=== PATIENT | male | born 1980 | race African-American/Black ===

== ENCOUNTER 2018-11-25 10:04 | Inpatient (IN) ==
[2018-11-25 10:52] LABS: Basophils # 0.1 10*3/uL (0.0-0.2); Basophils % 0.6 % (0.0-0.8); Eosinophils # 0.1 10*3/uL (0.0-0.87); Eosinophils % 1.3 % (0.00-10.9); Hematocrit 27.6 VOL% (42.0-52.0); Immature Granulocytes Absolute 0.22 #; Lymphocytes # 1.9 10*3/uL (1.4-4.0); Lymphocytes % 17.2 % (21.2-54.2); Mean Corpuscular Volume 79.3 FL (87-102); Mean Platelet Volume 9.6 FL (9.6-12.0); Monocytes % 11.1 % (1.7-12.7); Neutrophils % 67.8 % (38.7-73.9); Platelet Count 950 T/CUMM (130-400); Red Blood Count 3.48 MC/CUMM (3.8-5.5); Red Cell Distribution Width 17.9 % (9.3-17.3)
[2018-11-25 11:13] LABS: Alanine Aminotransferase 21 U/L (16-61); Albumin 1.7 G/DL (3.4-5.0); Alkaline Phosphatase 207 U/L (45-117); Aspartate Amino Transferase 15 U/L (0-37); Bilirubin,Total < 0.39 MG/DL (0.2-1.0); Blood Urea Nitrogen 40 MG/DL (7-18); Calcium 9.1 MG/DL (8.5-10.1); Glucose 97 MG/DL (74-106); Osmolality,Calculated 284.7 MOS/KG (273-304); Total Protein 8.3 G/DL (6.4-8.3)
[2018-11-25] MEDS ORDERED: LIDOCAINE 1% 50 ML VIAL ONE (13:39)
[2018-11-25 14:00] LABS: Risk Ratio 3.14
[2018-11-25] MEDS ORDERED: GLUCAGON 1 MG VIAL IM PRN (14:12)
[2018-11-25] MEDS ORDERED: DEXTROSE 50% 25 GM/50 ML VIAL IV PRN (14:12)
[2018-11-25] MEDS: INSULIN REGULAR 100 UNIT/ML SUBCUT SCH ×2 (15:38→20:42)
[2018-11-25] MEDS: SODIUM CHLORIDE 0.9% 1,000 ML IV SCH (16:00)
[2018-11-25] MEDS: PIPERACILLIN/TAZOBACTAM 3,375 MG in SODIUM CHLORIDE 0.9% 100 ML IV SCH ×2 (16:00→22:21)
[2018-11-25 16:49] LABS: Apearance,Urine CLEAR (Clear); Bacteria,Urine Occasional /HPF (Few); Bilirubin,Urine Negative (Negative); Blood, Urine Negative (Negative); Glucose,Urine (UA) Negative (Negative); Ketones,Urine Negative (Negative); Nitrite,Urine Negative (Negative); Protein,Urine Negative; Urine Color Yellow (Yellow); Urine Specific Gravity 1.018 (1.001-1.035); Urine Urobilinogen < 2.0 EU/DL (0.2-1.0); WBC,Urine 3 /HPF (0-6)
[2018-11-25] MEDS: fentaNYL 50 MCG/HR PATCH TRANSDERM SCH (17:55)
[2018-11-25] MEDS: SODIUM HYPOCHLORITE 0.25% IRRIG 473 ML BOTTLE TOP SCH (17:55)
[2018-11-25] MEDS ORDERED: AMINO ACIDS PROTEIN HYDROLYS PEG SCH (20:00)
[2018-11-25] MEDS: CYCLOBENZAPRINE 10 MG TABLET PEG SCH (20:56)
[2018-11-25] MEDS: levETIRAcetam LIQUID 100 MG/ML 30 ML/BOTTLE PEG SCH (20:56)
[2018-11-25] MEDS: SERTRALINE 50 MG TABLET PEG SCH (20:57)
[2018-11-26] MEDS: ZINC OXIDE PASTE 113 GM TUBE TOP SCH ×2 (02:34→17:08)
[2018-11-26] MEDS: ACETAMINOPHEN 325 MG TABLET PO PRN ×2 (02:38→20:09)
[2018-11-26 04:52] LABS: Basophils # 0.1 10*3/uL (0.0-0.2); Basophils % 0.6 % (0.0-0.8); Eosinophils # 0.1 10*3/uL (0.0-0.87); Eosinophils % 0.7 % (0.00-10.9); Hematocrit 28.6 VOL% (42.0-52.0); Hemoglobin 8.6 GM/DL (14.0-18.0); Immature Granulocytes % 1.7 %; Immature Granulocytes Absolute 0.17 #; Lymphocytes # 1.6 10*3/uL (1.4-4.0); Lymphocytes % 16.3 % (21.2-54.2); Mean Corpuscular HGB Conc 30.1 GM/DL (32-36); Mean Corpuscular Volume 78.6 FL (87-102); Mean Platelet Volume 9.5 FL (9.6-12.0); Monocytes % 11.3 % (1.7-12.7); Neutrophils % 69.4 % (38.7-73.9); Red Blood Count 3.64 MC/CUMM (3.8-5.5); White Blood Count 9.8 T/CUMM (4-12)
[2018-11-26 05:06] LABS: Platelet Count 1032 T/CUMM (130-400)
[2018-11-26 05:12] LABS: Calcium 9.3 MG/DL (8.5-10.1); Osmolality,Calculated 286.5 MOS/KG (273-304)
[2018-11-26 05:17] LABS: Prealbumin 16.4 MG/DL (20-40)
[2018-11-26] MEDS: PIPERACILLIN/TAZOBACTAM 3,375 MG in SODIUM CHLORIDE 0.9% 100 ML IV SCH ×3 (06:04→21:33)
[2018-11-26] MEDS: INSULIN REGULAR 100 UNIT/ML SUBCUT SCH ×4 (08:31→20:09)
[2018-11-26] MEDS: POTASSIUM CHLORIDE 20 MEQ/15 ML UDCUP PO SCH (09:18)
[2018-11-26] MEDS: ENOXAPARIN 40 MG/0.4 ML SYRINGE SUBCUT SCH (09:18)
[2018-11-26] MEDS: levETIRAcetam LIQUID 100 MG/ML 30 ML/BOTTLE PEG SCH ×2 (09:18→20:09)
[2018-11-26] MEDS: PANTOPRAZOLE 40 MG TABLET PO SCH (09:19)
[2018-11-26] MEDS: CYCLOBENZAPRINE 10 MG TABLET PEG SCH ×3 (09:19→20:09)
[2018-11-26] MEDS: SODIUM HYPOCHLORITE 0.25% IRRIG 473 ML BOTTLE TOP SCH (09:19)
[2018-11-26] MEDS: METOPROLOL TARTRATE 25 MG TABLET PEG SCH (09:19)
[2018-11-26] MEDS: SODIUM CHLORIDE 0.9% 1,000 ML IV SCH (11:07)
[2018-11-26] MEDS ORDERED: METOPROLOL TARTRATE 25 MG TABLET PO ONE (11:47)
[2018-11-26] MEDS: HYDROcod/ACETAMIN 7.5-325 MG/15 ML UDCUP PEG PRN (14:08)
[2018-11-26] MEDS: SERTRALINE 50 MG TABLET PEG SCH (20:09)
[2018-11-27] MEDS: ACETAMINOPHEN 325 MG TABLET PO PRN (01:30)
[2018-11-27 05:31] LABS: Basophils # 0.1 10*3/uL (0.0-0.2); Basophils % 0.8 % (0.0-0.8); Eosinophils # 0.2 10*3/uL (0.0-0.87); Hematocrit 29.5 VOL% (42.0-52.0); Hemoglobin 8.6 GM/DL (14.0-18.0); Immature Granulocytes % 1.4 %; Immature Granulocytes Absolute 0.11 #; Lymphocytes # 1.8 10*3/uL (1.4-4.0); Mean Corpuscular HGB Conc 29.2 GM/DL (32-36); Mean Corpuscular Volume 81.3 FL (87-102); Mean Platelet Volume 9.6 FL (9.6-12.0); Monocytes % 10.6 % (1.7-12.7); Neutrophils % 62.2 % (38.7-73.9); Platelet Count 977 T/CUMM (130-400); Red Blood Count 3.63 MC/CUMM (3.8-5.5); Red Cell Distribution Width 18.3 % (9.3-17.3); White Blood Count 7.9 T/CUMM (4-12)
[2018-11-27] MEDS: PIPERACILLIN/TAZOBACTAM 3,375 MG in SODIUM CHLORIDE 0.9% 100 ML IV SCH (05:44)
[2018-11-27 06:03] LABS: Calcium 9.4 MG/DL (8.5-10.1); Osmolality,Calculated 301.8 MOS/KG (273-304)
[2018-11-27] MEDS: INSULIN REGULAR 100 UNIT/ML SUBCUT SCH ×4 (08:13→21:07)
[2018-11-27] MEDS: METOPROLOL TARTRATE 25 MG TABLET PEG SCH ×3 (09:49→21:05)
[2018-11-27] MEDS: CYCLOBENZAPRINE 10 MG TABLET PEG SCH ×3 (09:49→21:05)
[2018-11-27] MEDS: PANTOPRAZOLE 40 MG TABLET PO SCH (09:49)
[2018-11-27] MEDS: POTASSIUM CHLORIDE 20 MEQ/15 ML UDCUP PO SCH (09:50)
[2018-11-27] MEDS: ENOXAPARIN 40 MG/0.4 ML SYRINGE SUBCUT SCH (09:50)
[2018-11-27] MEDS: levETIRAcetam LIQUID 100 MG/ML 30 ML/BOTTLE PEG SCH ×2 (09:50→21:06)
[2018-11-27] MEDS: SODIUM HYPOCHLORITE 0.25% IRRIG 473 ML BOTTLE TOP SCH (10:07)
[2018-11-27] MEDS: SODIUM CHLORIDE 0.9% 1,000 ML IV SCH (11:33)
[2018-11-27] MEDS: VANCOMYCIN INJ 750 MG in SODIUM CHLORIDE 0.9% 250 ML IV SCH ×2 (12:20→22:47)
[2018-11-27] MEDS: ZINC OXIDE PASTE 113 GM TUBE TOP SCH (18:40)
[2018-11-27] MEDS: SERTRALINE 50 MG TABLET PEG SCH (21:06)
[2018-11-27] MEDS: HYDROcod/ACETAMIN 7.5-325 MG/15 ML UDCUP PEG PRN (22:42)
[2018-11-28 06:42] LABS: Calcium 9.2 MG/DL (8.5-10.1); Osmolality,Calculated 292.1 MOS/KG (273-304); Prealbumin 17.6 MG/DL (20-40)
[2018-11-28] MEDS: INSULIN REGULAR 100 UNIT/ML SUBCUT SCH ×3 (07:30→16:38)
[2018-11-28] MEDS ORDERED: CHOLECALCIFEROL 5,000 UNIT TABLET PEG SCH (08:00)
[2018-11-28] MEDS ORDERED: cloNIDine 0.2 MG/24 HR PATCH TRANSDERM SCH (08:00)
[2018-11-28] MEDS ORDERED: SODIUM POLYSTYRENE SULFATE 15 GM/60 ML BOTTLE PO ONE (09:05)
[2018-11-28] MEDS: POTASSIUM CHLORIDE 20 MEQ/15 ML UDCUP PO SCH (09:56)
[2018-11-28] MEDS: ENOXAPARIN 40 MG/0.4 ML SYRINGE SUBCUT SCH (10:19)
[2018-11-28] MEDS: CYCLOBENZAPRINE 10 MG TABLET PEG SCH ×2 (10:22→14:20)
[2018-11-28] MEDS: levETIRAcetam LIQUID 100 MG/ML 30 ML/BOTTLE PEG SCH (10:22)
[2018-11-28] MEDS: METOPROLOL TARTRATE 25 MG TABLET PEG SCH ×2 (10:22→16:27)
[2018-11-28] MEDS: PANTOPRAZOLE 40 MG TABLET PO SCH (10:22)
[2018-11-28] MEDS: VANCOMYCIN INJ 750 MG in SODIUM CHLORIDE 0.9% 250 ML IV SCH (12:50)
[2018-11-28] MEDS: SODIUM HYPOCHLORITE 0.25% IRRIG 473 ML BOTTLE TOP SCH (12:58)
[2018-11-28] MEDS: ZINC OXIDE PASTE 113 GM TUBE TOP SCH (16:38)
[2018-11-28] MEDS: fentaNYL 50 MCG/HR PATCH TRANSDERM SCH (17:00)
[2018-11-28 17:17] VITALS: BP 136/87
[2018-11-28] MEDS ORDERED: EPINEPHrine 1 MG/ML VIAL ONE (18:02)
== END 2018-11-28 17:15 | DRG 380 ==
LOC: EDUNIT# → EDBD → N.EDINP 10:04 → N.ED 10:04 → N.EDINP 14:44 → N.3E 14:50

== ENCOUNTER 2020-04-21 19:13 | Inpatient (IN) ==
[~2020-04-21 19:13] MED LIST: LACTULOSE 320 GM/480 ML BOTTLE RECTAL ONE
[2020-04-21 20:23] LABS: Eosinophils # 0.1 10*3/uL (0.0-0.87); Eosinophils % 1.3 % (0.00-10.9); Hematocrit 43.3 VOL% (42.0-52.0); Hemoglobin 13.4 GM/DL (14.0-18.0); Immature Granulocytes % 1.4 %; Immature Granulocytes Absolute 0.14 #; Lymphocytes # 1.8 10*3/uL (1.4-4.0); Lymphocytes % 17.1 % (21.2-54.2); Mean Corpuscular HGB Conc 30.9 GM/DL (32-36); Mean Corpuscular Volume 94.3 FL (87-102); Mean Platelet Volume 11.3 FL (9.6-12.0); Monocytes % 8.8 % (1.7-12.7); NRBC # 0.03 10*3/uL; Neutrophils % 71.4 % (38.7-73.9); Platelet Count 337 T/CUMM (130-400); Red Blood Count 4.59 MC/CUMM (3.8-5.5); Red Cell Distribution Width 16.8 % (9.3-17.3); White Blood Count 10.3 T/CUMM (4-12)
[2020-04-21 20:37] LABS: Alanine Aminotransferase 82 U/L (16-61); Albumin 1.7 G/DL (3.4-5.0); Alkaline Phosphatase 144 U/L (45-117); Aspartate Amino Transferase 51 U/L (0-37); Bilirubin,Total < 0.39 MG/DL (0.2-1.0); Blood Urea Nitrogen 116 MG/DL (7-18); Calcium 8.1 MG/DL (8.5-10.1); Estimated Glom Filtration Rate 36 ML/MIN; Glucose 336 MG/DL (74-106); Osmolality,Calculated 350.7 MOS/KG (273-304); Total Protein 6.6 G/DL (6.4-8.3)
[2020-04-21 21:12] LABS: Amorphous Crystals,Urine Occasional /HPF (Few); Bacteria,Urine Many /HPF (Few); Bilirubin,Urine Negative (Negative); Blood, Urine Negative (Negative); Glucose,Urine (UA) 50 mg/dL (Negative); Ketones,Urine Negative (Negative); Mucus,Urine Occasional /LPF (Occasional); Nitrite,Urine Negative (Negative); Protein,Urine 100 MG/DL; Squamous Epithelial Cell,Urine Occasional /HPF (0-10); Urine Appearance CLOUDY (Clear); Urine Color Yellow (Yellow); Urine Specific Gravity 1.014 (1.001-1.035); Urine Urobilinogen < 2.0 EU/DL (0.2-1.0)
[2020-04-21] MEDS ORDERED: ALUMINUM/MAGNES/SIMETH MAX STR 30 ML UDCUP PO PRN (22:19)
[2020-04-21] MEDS ORDERED: ONDANSETRON 4 MG/2 ML VIAL IV PRN (22:19)
[2020-04-21] MEDS ORDERED: ACETAMINOPHEN 325 MG TABLET PO PRN (22:19)
[2020-04-21] MEDS ORDERED: GLUCAGON 1 MG VIAL IM PRN (22:19)
[2020-04-21] MEDS ORDERED: hydrALAZINE 20 MG/1 ML VIAL IV PRN (22:19)
[2020-04-21] MEDS ORDERED: PROMETHAZINE 25 MG/1 ML VIAL IM PRN (22:19)
[2020-04-21] MEDS ORDERED: DEXTROSE 50% 25 GM/50 ML VIAL IV PRN (22:19)
[2020-04-21] MEDS ORDERED: diphenhydrAMINE CAP 25 MG CAPSULE PO PRN (22:19)
[2020-04-21] MEDS ORDERED: SIMETHICONE CHEW 125 MG TABLET PO PRN (22:19)
[2020-04-21] MEDS ORDERED: ZINC OXIDE 20% OINT 28.35 GM TUBE TOP PRN (23:30)
[2020-04-21] MEDS: SODIUM CHLORIDE 0.9% 1,000 ML IV SCH (23:43)
[2020-04-22 04:39] LABS: Basophils % 0.1 % (0.0-0.8); Eosinophils # 0.2 10*3/uL (0.0-0.87); Eosinophils % 1.9 % (0.00-10.9); Hematocrit 41.1 VOL% (42.0-52.0); Hemoglobin 12.4 GM/DL (14.0-18.0); Immature Granulocytes % 1.4 %; Immature Granulocytes Absolute 0.15 #; Lymphocytes # 2.2 10*3/uL (1.4-4.0); Lymphocytes % 19.9 % (21.2-54.2); Mean Corpuscular HGB Conc 30.2 GM/DL (32-36); Mean Corpuscular Volume 95.6 FL (87-102); Mean Platelet Volume 11.3 FL (9.6-12.0); Monocytes % 8.3 % (1.7-12.7); Neutrophils % 68.4 % (38.7-73.9); Platelet Count 365 T/CUMM (130-400)
[2020-04-22 04:56] LABS: Calcium 8.5 MG/DL (8.5-10.1); Osmolality,Calculated 344.3 MOS/KG (273-304)
[2020-04-22] MEDS ORDERED: SODIUM POLYSTYRENE SULFATE 15 GM/60 ML BOTTLE PEG ONE (06:11)
[2020-04-22] MEDS: SODIUM CHLORIDE 0.9% 1,000 ML IV SCH ×2 (07:43→16:16)
[2020-04-22] MEDS: POLYVINYL ALCOHOL 1.4% OPH SOLN 15 ML BOTTLE BOTH EYES SCH ×4 (08:30→20:06)
[2020-04-22] MEDS: PANTOPRAZOLE 40 MG VIAL IV SCH (08:30)
[2020-04-22] MEDS: HEPARIN 5,000 UNIT/1 ML VIAL SUBCUT SCH ×2 (08:30→20:06)
[2020-04-22] MEDS: INSULIN LISPRO 100 UNIT/ML SUBCUT SCH ×4 (08:36→20:08)
[2020-04-22] MEDS: METOPROLOL TARTRATE 25 MG TABLET PEG SCH ×3 (09:48→20:07)
[2020-04-22] MEDS: levETIRAcetam 500 MG TABLET PO SCH ×2 (09:48→20:06)
[2020-04-22] MEDS: FAMOTIDINE 20 MG TABLET PEG SCH ×2 (09:48→20:07)
[2020-04-22] MEDS: MENTHOL/ZINC OXIDE OINT 71 GM JAR TOP SCH ×2 (10:59→20:06)
[2020-04-22] MEDS: COLLAGENASE OINT 30 GM TUBE TOP SCH (10:59)
[2020-04-22] MEDS: SODIUM HYPOCHLORITE 0.25% IRRIG 473 ML BOTTLE TOP SCH (10:59)
[2020-04-22] MEDS: NON-FORMULARY MEDICATION (Amino Acids-Protein Hydrolys [Pro-Stat Sugar Free] 15-100 gram-k PEG SCH ×2 (11:27→20:06)
[2020-04-22] MEDS: SODIUM CHLORIDE 0.45% 1,000 ML IV SCH (16:22)
[2020-04-22] MEDS: guaiFENesin/DM ER 600-30 MG TABLET PO PRN (20:07)
[2020-04-22] MEDS: SERTRALINE 25 MG TABLET PEG SCH (20:07)
[2020-04-23] MEDS: SODIUM CHLORIDE 0.45% 1,000 ML IV SCH ×3 (00:30→22:02)
[2020-04-23 05:23] LABS: Calcium 7.7 MG/DL (8.5-10.1); Osmolality,Calculated 340.4 MOS/KG (273-304)
[2020-04-23 07:58] LABS: Basophils % 0.1 % (0.0-0.8); Eosinophils # 0.2 10*3/uL (0.0-0.87); Eosinophils % 1.5 % (0.00-10.9); Hematocrit 34.7 VOL% (42.0-52.0); Hemoglobin 10.8 GM/DL (14.0-18.0); Immature Granulocytes % 1.2 %; Immature Granulocytes Absolute 0.13 #; Lymphocytes # 1.8 10*3/uL (1.4-4.0); Lymphocytes % 16.1 % (21.2-54.2); Mean Corpuscular HGB Conc 31.1 GM/DL (32-36); Mean Corpuscular Volume 93.5 FL (87-102); Mean Platelet Volume 11.1 FL (9.6-12.0); Monocytes % 8.8 % (1.7-12.7); Neutrophils % 72.3 % (38.7-73.9); Platelet Count 297 T/CUMM (130-400); Red Blood Count 3.71 MC/CUMM (3.8-5.5); Red Cell Distribution Width 16.8 % (9.3-17.3); White Blood Count 11.1 T/CUMM (4-12)
[2020-04-23 07:59] LABS: Albumin 1.7 G/DL (3.4-5.0); Calcium 7.7 MG/DL (8.5-10.1); Osmolality,Calculated 340.6 MOS/KG (273-304)
[2020-04-23] MEDS: POLYETHYLENE GLYCOL POWDER 17 GM PACK PEG SCH (08:04)
[2020-04-23] MEDS: HEPARIN 5,000 UNIT/1 ML VIAL SUBCUT SCH ×2 (08:04→21:26)
[2020-04-23] MEDS: PANTOPRAZOLE 40 MG VIAL IV SCH (08:04)
[2020-04-23] MEDS: FAMOTIDINE 20 MG TABLET PEG SCH ×2 (08:05→21:26)
[2020-04-23] MEDS: levETIRAcetam 500 MG TABLET PO SCH ×2 (08:05→21:26)
[2020-04-23] MEDS: METOPROLOL TARTRATE 25 MG TABLET PEG SCH ×3 (08:05→21:26)
[2020-04-23] MEDS: POLYVINYL ALCOHOL 1.4% OPH SOLN 15 ML BOTTLE BOTH EYES SCH ×4 (08:05→21:26)
[2020-04-23] MEDS: INSULIN LISPRO 100 UNIT/ML SUBCUT SCH ×4 (09:17→21:26)
[2020-04-23] MEDS: COLLAGENASE OINT 30 GM TUBE TOP SCH (09:24)
[2020-04-23] MEDS: MENTHOL/ZINC OXIDE OINT 71 GM JAR TOP SCH ×2 (09:24→21:26)
[2020-04-23] MEDS: SODIUM HYPOCHLORITE 0.25% IRRIG 473 ML BOTTLE TOP SCH (09:24)
[2020-04-23] MEDS: NON-FORMULARY MEDICATION (Amino Acids-Protein Hydrolys [Pro-Stat Sugar Free] 15-100 gram-k PEG SCH ×2 (12:38→21:26)
[2020-04-23] MEDS: guaiFENesin/DM ER 600-30 MG TABLET PO PRN (21:26)
[2020-04-23] MEDS: SERTRALINE 25 MG TABLET PEG SCH (21:26)
[2020-04-24] MEDS: SODIUM CHLORIDE 0.45% 1,000 ML IV SCH ×3 (05:43→23:38)
[2020-04-24] MEDS: PANTOPRAZOLE 40 MG VIAL IV SCH (08:37)
[2020-04-24] MEDS: INSULIN LISPRO 100 UNIT/ML SUBCUT SCH ×4 (08:37→21:25)
[2020-04-24] MEDS: METOPROLOL TARTRATE 25 MG TABLET PEG SCH ×3 (08:37→21:05)
[2020-04-24] MEDS: HEPARIN 5,000 UNIT/1 ML VIAL SUBCUT SCH ×2 (08:37→21:05)
[2020-04-24] MEDS: FAMOTIDINE 20 MG TABLET PEG SCH ×2 (08:37→21:05)
[2020-04-24] MEDS: levETIRAcetam 500 MG TABLET PO SCH ×2 (08:37→21:05)
[2020-04-24] MEDS: NON-FORMULARY MEDICATION (Amino Acids-Protein Hydrolys [Pro-Stat Sugar Free] 15-100 gram-k PEG SCH ×2 (08:38→21:05)
[2020-04-24] MEDS: POLYVINYL ALCOHOL 1.4% OPH SOLN 15 ML BOTTLE BOTH EYES SCH ×4 (08:38→21:05)
[2020-04-24] MEDS: SODIUM HYPOCHLORITE 0.25% IRRIG 473 ML BOTTLE TOP SCH (10:29)
[2020-04-24] MEDS: MENTHOL/ZINC OXIDE OINT 71 GM JAR TOP SCH ×2 (10:29→19:45)
[2020-04-24] MEDS: COLLAGENASE OINT 30 GM TUBE TOP SCH (10:29)
[2020-04-24] MEDS: SERTRALINE 25 MG TABLET PEG SCH (21:05)
[2020-04-24] MEDS: guaiFENesin/DM ER 600-30 MG TABLET PO PRN (21:05)
[2020-04-25 05:24] LABS: Calcium 7.6 MG/DL (8.5-10.1); Osmolality,Calculated 309.7 MOS/KG (273-304)
[2020-04-25] MEDS: PANTOPRAZOLE 40 MG VIAL IV SCH (08:37)
[2020-04-25] MEDS: HEPARIN 5,000 UNIT/1 ML VIAL SUBCUT SCH ×2 (08:37→21:18)
[2020-04-25] MEDS: POLYVINYL ALCOHOL 1.4% OPH SOLN 15 ML BOTTLE BOTH EYES SCH ×4 (08:38→23:24)
[2020-04-25] MEDS: levETIRAcetam 500 MG TABLET PO SCH ×2 (08:38→21:16)
[2020-04-25] MEDS: FAMOTIDINE 20 MG TABLET PEG SCH ×2 (08:38→21:16)
[2020-04-25] MEDS: NON-FORMULARY MEDICATION (Amino Acids-Protein Hydrolys [Pro-Stat Sugar Free] 15-100 gram-k PEG SCH ×2 (08:38→21:18)
[2020-04-25] MEDS: METOPROLOL TARTRATE 25 MG TABLET PEG SCH ×3 (08:38→21:16)
[2020-04-25] MEDS: INSULIN LISPRO 100 UNIT/ML SUBCUT SCH ×4 (08:38→21:18)
[2020-04-25] MEDS: SODIUM CHLORIDE 0.45% 1,000 ML IV SCH ×3 (11:01→14:27)
[2020-04-25] MEDS: SODIUM HYPOCHLORITE 0.25% IRRIG 473 ML BOTTLE TOP SCH (11:01)
[2020-04-25] MEDS: COLLAGENASE OINT 30 GM TUBE TOP SCH (11:01)
[2020-04-25] MEDS: MENTHOL/ZINC OXIDE OINT 71 GM JAR TOP SCH ×2 (11:01→19:20)
[2020-04-25] MEDS: guaiFENesin/DM ER 600-30 MG TABLET PO PRN (21:16)
[2020-04-25] MEDS: SERTRALINE 25 MG TABLET PEG SCH (21:16)
[2020-04-26] MEDS: SODIUM CHLORIDE 0.45% 1,000 ML IV SCH (05:10)
[2020-04-26 05:53] LABS: Calcium 7.5 MG/DL (8.5-10.1); Osmolality,Calculated 301.1 MOS/KG (273-304)
[2020-04-26] MEDS: INSULIN LISPRO 100 UNIT/ML SUBCUT SCH ×4 (09:21→20:52)
[2020-04-26] MEDS: levETIRAcetam 500 MG TABLET PO SCH ×2 (09:22→20:51)
[2020-04-26] MEDS: FAMOTIDINE 20 MG TABLET PEG SCH ×2 (09:22→20:51)
[2020-04-26] MEDS: POLYETHYLENE GLYCOL POWDER 17 GM PACK PEG SCH (09:22)
[2020-04-26] MEDS: METOPROLOL TARTRATE 25 MG TABLET PEG SCH ×3 (09:22→20:51)
[2020-04-26] MEDS: HEPARIN 5,000 UNIT/1 ML VIAL SUBCUT SCH ×2 (09:23→20:51)
[2020-04-26] MEDS: PANTOPRAZOLE 40 MG VIAL IV SCH (09:23)
[2020-04-26] MEDS: COLLAGENASE OINT 30 GM TUBE TOP SCH (09:23)
[2020-04-26] MEDS: POLYVINYL ALCOHOL 1.4% OPH SOLN 15 ML BOTTLE BOTH EYES SCH ×4 (09:23→20:50)
[2020-04-26] MEDS: SODIUM HYPOCHLORITE 0.25% IRRIG 473 ML BOTTLE TOP SCH (09:23)
[2020-04-26] MEDS: MENTHOL/ZINC OXIDE OINT 71 GM JAR TOP SCH ×2 (09:23→20:50)
[2020-04-26] MEDS: NON-FORMULARY MEDICATION (Amino Acids-Protein Hydrolys [Pro-Stat Sugar Free] 15-100 gram-k PEG SCH ×2 (09:35→20:50)
[2020-04-26] MEDS: SERTRALINE 25 MG TABLET PEG SCH (20:51)
[2020-04-27] MEDS: SODIUM CHLORIDE 0.45% 1,000 ML IV SCH ×4 (01:33→22:30)
[2020-04-27 05:46] LABS: Basophils % 0.3 % (0.0-0.8); Eosinophils # 0.1 10*3/uL (0.0-0.87); Eosinophils % 1.3 % (0.00-10.9); Hematocrit 31.2 VOL% (42.0-52.0); Immature Granulocytes % 1.9 %; Immature Granulocytes Absolute 0.15 #; Lymphocytes # 1.4 10*3/uL (1.4-4.0); Lymphocytes % 18.2 % (21.2-54.2); Mean Corpuscular HGB Conc 32.1 GM/DL (32-36); Mean Corpuscular Volume 89.9 FL (87-102); Mean Platelet Volume 11.2 FL (9.6-12.0); Monocytes % 12.8 % (1.7-12.7); Neutrophils % 65.5 % (38.7-73.9); Platelet Count 278 T/CUMM (130-400); Red Blood Count 3.47 MC/CUMM (3.8-5.5); Red Cell Distribution Width 16.1 % (9.3-17.3); White Blood Count 7.7 T/CUMM (4-12)
[2020-04-27 06:10] LABS: Calcium 7.9 MG/DL (8.5-10.1); Osmolality,Calculated 289.7 MOS/KG (273-304)
[2020-04-27] MEDS: INSULIN LISPRO 100 UNIT/ML SUBCUT SCH ×4 (07:34→21:11)
[2020-04-27] MEDS: POLYVINYL ALCOHOL 1.4% OPH SOLN 15 ML BOTTLE BOTH EYES SCH ×4 (09:16→21:09)
[2020-04-27] MEDS: PANTOPRAZOLE 40 MG VIAL IV SCH (09:16)
[2020-04-27] MEDS: SODIUM HYPOCHLORITE 0.25% IRRIG 473 ML BOTTLE TOP SCH (09:16)
[2020-04-27] MEDS: NON-FORMULARY MEDICATION (Amino Acids-Protein Hydrolys [Pro-Stat Sugar Free] 15-100 gram-k PEG SCH (09:16)
[2020-04-27] MEDS: MENTHOL/ZINC OXIDE OINT 71 GM JAR TOP SCH ×2 (09:16→21:10)
[2020-04-27] MEDS: METOPROLOL TARTRATE 25 MG TABLET PEG SCH ×3 (09:16→21:08)
[2020-04-27] MEDS: COLLAGENASE OINT 30 GM TUBE TOP SCH (09:16)
[2020-04-27] MEDS: levETIRAcetam 500 MG TABLET PO SCH ×2 (09:16→21:08)
[2020-04-27] MEDS: FAMOTIDINE 20 MG TABLET PEG SCH ×2 (09:16→21:14)
[2020-04-27] MEDS: HEPARIN 5,000 UNIT/1 ML VIAL SUBCUT SCH ×2 (09:16→21:12)
[2020-04-27] MEDS: SERTRALINE 25 MG TABLET PEG SCH (21:08)
[2020-04-28 05:39] LABS: Basophils % 0.3 % (0.0-0.8); Eosinophils # 0.1 10*3/uL (0.0-0.87); Eosinophils % 0.6 % (0.00-10.9); Hematocrit 31.8 VOL% (42.0-52.0); Hemoglobin 10.4 GM/DL (14.0-18.0); Immature Granulocytes % 1.2 %; Immature Granulocytes Absolute 0.14 #; Lymphocytes # 1.5 10*3/uL (1.4-4.0); Lymphocytes % 13.5 % (21.2-54.2); Mean Corpuscular HGB Conc 32.7 GM/DL (32-36); Mean Corpuscular Volume 88.8 FL (87-102); Mean Platelet Volume 11.2 FL (9.6-12.0); Monocytes % 11.5 % (1.7-12.7); Neutrophils % 72.9 % (38.7-73.9); Platelet Count 327 T/CUMM (130-400); Red Blood Count 3.58 MC/CUMM (3.8-5.5); White Blood Count 11.2 T/CUMM (4-12)
[2020-04-28 05:57] LABS: Calcium 8.2 MG/DL (8.5-10.1); Osmolality,Calculated 292.4 MOS/KG (273-304)
[2020-04-28] MEDS: levETIRAcetam 500 MG TABLET PO SCH ×2 (09:45→22:56)
[2020-04-28] MEDS: FAMOTIDINE 20 MG TABLET PEG SCH ×2 (09:46→22:57)
[2020-04-28] MEDS: METOPROLOL TARTRATE 25 MG TABLET PEG SCH ×3 (09:46→22:56)
[2020-04-28] MEDS: INSULIN LISPRO 100 UNIT/ML SUBCUT SCH ×4 (09:46→22:49)
[2020-04-28] MEDS: POLYETHYLENE GLYCOL POWDER 17 GM PACK PEG SCH (09:47)
[2020-04-28] MEDS: MENTHOL/ZINC OXIDE OINT 71 GM JAR TOP SCH ×2 (09:47→22:52)
[2020-04-28] MEDS: POLYVINYL ALCOHOL 1.4% OPH SOLN 15 ML BOTTLE BOTH EYES SCH ×4 (09:48→22:51)
[2020-04-28] MEDS: HEPARIN 5,000 UNIT/1 ML VIAL SUBCUT SCH ×2 (09:48→22:54)
[2020-04-28] MEDS: SODIUM HYPOCHLORITE 0.25% IRRIG 473 ML BOTTLE TOP SCH (09:49)
[2020-04-28] MEDS: COLLAGENASE OINT 30 GM TUBE TOP SCH (09:49)
[2020-04-28] MEDS: SODIUM CHLORIDE 0.45% 1,000 ML IV SCH ×2 (20:00→22:57)
[2020-04-28] MEDS: SERTRALINE 25 MG TABLET PEG SCH (22:56)
[2020-04-29 06:01] LABS: Basophils % 0.3 % (0.0-0.8); Eosinophils # 0.1 10*3/uL (0.0-0.87); Eosinophils % 1.1 % (0.00-10.9); Hematocrit 31.2 VOL% (42.0-52.0); Hemoglobin 10.2 GM/DL (14.0-18.0); Immature Granulocytes % 1.8 %; Immature Granulocytes Absolute 0.18 #; Lymphocytes # 1.9 10*3/uL (1.4-4.0); Lymphocytes % 18.9 % (21.2-54.2); Mean Corpuscular HGB Conc 32.7 GM/DL (32-36); Mean Corpuscular Volume 89.9 FL (87-102); Mean Platelet Volume 10.7 FL (9.6-12.0); Monocytes % 12.7 % (1.7-12.7); Neutrophils % 65.2 % (38.7-73.9); Platelet Count 310 T/CUMM (130-400); Red Blood Count 3.47 MC/CUMM (3.8-5.5); Red Cell Distribution Width 16.4 % (9.3-17.3); White Blood Count 9.8 T/CUMM (4-12)
[2020-04-29 06:27] LABS: Calcium 8.3 MG/DL (8.5-10.1)
[2020-04-29] MEDS: METOPROLOL TARTRATE 25 MG TABLET PEG SCH ×3 (09:20→21:46)
[2020-04-29] MEDS: levETIRAcetam 500 MG TABLET PO SCH ×2 (09:20→21:45)
[2020-04-29] MEDS: MENTHOL/ZINC OXIDE OINT 71 GM JAR TOP SCH ×2 (09:21→21:45)
[2020-04-29] MEDS: FAMOTIDINE 20 MG TABLET PEG SCH ×2 (09:21→21:46)
[2020-04-29] MEDS: HEPARIN 5,000 UNIT/1 ML VIAL SUBCUT SCH ×2 (09:22→21:47)
[2020-04-29] MEDS: POLYVINYL ALCOHOL 1.4% OPH SOLN 15 ML BOTTLE BOTH EYES SCH ×4 (09:22→21:46)
[2020-04-29] MEDS: INSULIN LISPRO 100 UNIT/ML SUBCUT SCH ×5 (09:29→21:51)
[2020-04-29] MEDS: SODIUM HYPOCHLORITE 0.25% IRRIG 473 ML BOTTLE TOP SCH (09:31)
[2020-04-29] MEDS: COLLAGENASE OINT 30 GM TUBE TOP SCH (14:06)
[2020-04-29] MEDS: SODIUM CHLORIDE 0.45% 1,000 ML IV SCH (17:17)
[2020-04-29] MEDS: SERTRALINE 25 MG TABLET PEG SCH (21:45)
[2020-04-30 06:10] LABS: Basophils % 0.3 % (0.0-0.8); Eosinophils # 0.2 10*3/uL (0.0-0.87); Eosinophils % 1.9 % (0.00-10.9); Hematocrit 28.8 VOL% (42.0-52.0); Hemoglobin 9.5 GM/DL (14.0-18.0); Immature Granulocytes % 1.2 %; Immature Granulocytes Absolute 0.12 #; Lymphocytes # 2.1 10*3/uL (1.4-4.0); Lymphocytes % 21.2 % (21.2-54.2); Mean Corpuscular Volume 90.3 FL (87-102); Mean Platelet Volume 10.8 FL (9.6-12.0); Monocytes % 13.1 % (1.7-12.7); Neutrophils % 62.3 % (38.7-73.9); Platelet Count 329 T/CUMM (130-400); Red Blood Count 3.19 MC/CUMM (3.8-5.5); Red Cell Distribution Width 16.5 % (9.3-17.3); White Blood Count 9.7 T/CUMM (4-12)
[2020-04-30 06:29] LABS: Calcium 8.3 MG/DL (8.5-10.1); Osmolality,Calculated 290.3 MOS/KG (273-304)
[2020-04-30] MEDS ORDERED: METHYL SALICYLATE 60 ML BOTTLE TOP SCH (09:00)
[2020-04-30] MEDS: COLLAGENASE OINT 30 GM TUBE TOP SCH (09:30)
[2020-04-30] MEDS: SODIUM HYPOCHLORITE 0.25% IRRIG 473 ML BOTTLE TOP SCH (09:30)
[2020-04-30] MEDS: INSULIN LISPRO 100 UNIT/ML SUBCUT SCH ×2 (09:31→14:50)
[2020-04-30] MEDS: MENTHOL/ZINC OXIDE OINT 71 GM JAR TOP SCH (09:31)
[2020-04-30] MEDS: METOPROLOL TARTRATE 25 MG TABLET PEG SCH (09:32)
[2020-04-30] MEDS: POLYETHYLENE GLYCOL POWDER 17 GM PACK PEG SCH (09:32)
[2020-04-30] MEDS: levETIRAcetam 500 MG TABLET PO SCH (09:32)
[2020-04-30] MEDS: POLYVINYL ALCOHOL 1.4% OPH SOLN 15 ML BOTTLE BOTH EYES SCH ×2 (09:33→12:55)
[2020-04-30] MEDS: FAMOTIDINE 20 MG TABLET PEG SCH (09:33)
[2020-04-30] MEDS: HEPARIN 5,000 UNIT/1 ML VIAL SUBCUT SCH (09:33)
[2020-04-30 15:54] VITALS: BP 131/90
== END 2020-04-30 17:25 | DRG 137 ==
LOC: EDUNIT# → EDBD → N.ED 19:13 → SUATTDRO 22:19 → N.EDINP 22:19 → N.2E 23:37 → N.5E 04-27 12:33
PROVIDERS: ADMIT Internal Medicine; ATTEND Internal Medicine

== ENCOUNTER 2020-06-30 17:11 | Inpatient (IN) ==
[2020-06-30 17:40] LABS: Basophils % 0.1 % (0.0-0.8); Eosinophils # 0.3 10*3/uL (0.0-0.87); Eosinophils % 2.1 % (0.00-10.9); Hematocrit 35.9 VOL% (42.0-52.0); Hemoglobin 11.2 GM/DL (14.0-18.0); Immature Granulocytes % 0.7 %; Lymphocytes # 0.6 10*3/uL (1.4-4.0); Lymphocytes % 4.2 % (21.2-54.2); Mean Corpuscular HGB Conc 31.2 GM/DL (32-36); Mean Corpuscular Volume 96.2 FL (87-102); Mean Platelet Volume 9.7 FL (9.6-12.0); Monocytes % 6.2 % (1.7-12.7); Neutrophils % 86.7 % (38.7-73.9); Platelet Count 405 T/CUMM (130-400); Red Blood Count 3.73 MC/CUMM (3.8-5.5); Red Cell Distribution Width 15.5 % (9.3-17.3); White Blood Count 14.6 T/CUMM (4-12)
[2020-06-30 17:52] LABS: Albumin 2.7 G/DL (3.4-5.0); Bilirubin,Total 0.6 MG/DL (0.2-1.0); Osmolality,Calculated 302.1 MOS/KG (273-304); Potassium 5.2 MMOL/L (3.5-5.1); Total Protein 8.1 G/DL (5.0-7.5)
[2020-06-30] MEDS ORDERED: ACETAMINOPHEN IV STA (19:38)
[2020-06-30 19:43] LABS: Bacteria,Urine Moderate /HPF (Few); Bilirubin,Urine Negative (Negative); Blood, Urine Small mg/dL (Negative); Glucose,Urine (UA) Negative (Negative); Ketones,Urine Negative (Negative); Mucus,Urine Occasional /LPF (Occasional); Nitrite,Urine Negative (Negative); Protein,Urine >=500 MG/DL; RBC,Urine 20 /HPF (0-4); Urine Appearance Slightly Hazy (Clear); Urine Color Yellow (Yellow); Urine Specific Gravity 1.015 (1.001-1.035); Urine Urobilinogen < 2.0 EU/DL (0.2-1.0); WBC,Urine 4 /HPF (0-6)
[2020-06-30] MEDS ORDERED: ACETAMINOPHEN 650 MG SUPP RECTAL STA (19:50)
[2020-06-30 20:51] LABS: Band Neutrophils 11 % (0-10); Eosinophils 7 % (0-10); Lymphocytes 9 % (20-55); Platelet Estimate Normal; Segmented Neutrophils 72 % (50-85); Total Cells Counted 100
[2020-06-30 20:52] LABS: Macrocytosis Slight
[2020-06-30] MEDS ORDERED: PIPERACILLIN/TAZOBACTAM 3,375 MG in SODIUM CHLORIDE 0.9% 100 ML IV STA (21:02)
[2020-06-30] MEDS ORDERED: hydrALAZINE 20 MG/1 ML VIAL IV PRN (21:08)
[2020-06-30] MEDS ORDERED: ONDANSETRON 4 MG/2 ML VIAL IV PRN (21:08)
[2020-06-30] MEDS ORDERED: GLUCAGON 1 MG VIAL IM PRN (21:08)
[2020-06-30] MEDS ORDERED: MORPHINE 4 MG/1 ML VIAL IV PRN (21:08)
[2020-06-30] MEDS ORDERED: DEXTROSE 50% 25 GM/50 ML VIAL IV PRN (21:08)
[2020-06-30] MEDS: VANCOMYCIN INJ 1,000 MG in SODIUM CHLORIDE 0.9% 250 ML IV SCH (23:30)
[2020-07-01 04:25] LABS: Basophils % 0.1 % (0.0-0.8); Eosinophils # 0.2 10*3/uL (0.0-0.87); Eosinophils % 1.1 % (0.00-10.9); Hematocrit 36.3 VOL% (42.0-52.0); Hemoglobin 11.3 GM/DL (14.0-18.0); Immature Granulocytes % 1.2 %; Lymphocytes # 0.4 10*3/uL (1.4-4.0); Lymphocytes % 2.3 % (21.2-54.2); Mean Corpuscular HGB Conc 31.1 GM/DL (32-36); Mean Platelet Volume 9.7 FL (9.6-12.0); Monocytes % 5.5 % (1.7-12.7); Neutrophils % 89.8 % (38.7-73.9); Platelet Count 384 T/CUMM (130-400); Red Blood Count 3.78 MC/CUMM (3.8-5.5); Red Cell Distribution Width 15.7 % (9.3-17.3); White Blood Count 16.5 T/CUMM (4-12)
[2020-07-01] MEDS ORDERED: ACETAMINOPHEN 650 MG SUPP RECTAL PRN (04:27)
[2020-07-01 04:44] LABS: Band Neutrophils 7 % (0-10); Eosinophils 2 % (0-10); Hypochromasia Slight; Lymphocytes 3 % (20-55); Microcytosis Slight; Platelet Estimate Adequate; Segmented Neutrophils 81 % (50-85); Total Cells Counted 100
[2020-07-01 04:58] LABS: Albumin 2.5 G/DL (3.4-5.0); Bilirubin,Total 1.7 MG/DL (0.2-1.0); Calcium 9.1 MG/DL (8.5-10.1); Osmolality,Calculated 303.5 MOS/KG (273-304); Potassium 5.4 MMOL/L (3.5-5.1); Total Protein 8.1 G/DL (5.0-7.5)
[2020-07-01] MEDS: PIPERACILLIN/TAZOBACTAM 3,375 MG in SODIUM CHLORIDE 0.9% 100 ML IV SCH ×3 (05:45→23:40)
[2020-07-01] MEDS ORDERED: VANCOMYCIN INJ 1,000 MG in SODIUM CHLORIDE 0.9% 250 ML IV SCH (09:30)
[2020-07-01] MEDS: LACTATED RINGERS 1,000 ML IV SCH ×2 (10:33→17:38)
[2020-07-01 13:00] LABS: Calcium 8.5 MG/DL (8.5-10.1); Osmolality,Calculated 313.1 MOS/KG (273-304); Potassium 5.5 MMOL/L (3.5-5.1)
[2020-07-01 15:35] LABS: ABG Base Excess -0.2 MMOL/L (-2.5-2.5); ABG HCO3 23.1 MMOL/L (20-26); ABG Oxygen Saturation 94.8 % (95-100); ABG PCO2 33.2 MM HG (35-48); ABG PO2 74.9 MM HG (80-95); ABG TCO2 24.1 MMOL/L (23-27)
[2020-07-01] MEDS ORDERED: SODIUM POLYSTYRENE SULFATE 15 GM/60 ML BOTTLE PO ONE (15:45)
[2020-07-01] MEDS: VANCOMYCIN INJ 1,000 MG in SODIUM CHLORIDE 0.9% 250 ML IV SCH (21:16)
[2020-07-02] MEDS: ACETAMINOPHEN 650 MG SUPP RECTAL PRN ×2 (00:15→08:10)
[2020-07-02] MEDS: LACTATED RINGERS 1,000 ML IV SCH ×3 (01:55→16:46)
[2020-07-02 05:42] LABS: Basophils % 0.3 % (0.0-0.8); Eosinophils # 0.4 10*3/uL (0.0-0.87); Eosinophils % 3.5 % (0.00-10.9); Hematocrit 32.2 VOL% (42.0-52.0); Immature Granulocytes % 0.8 %; Immature Granulocytes Absolute 0.09 #; Lymphocytes # 0.6 10*3/uL (1.4-4.0); Lymphocytes % 5.1 % (21.2-54.2); Mean Corpuscular HGB Conc 31.1 GM/DL (32-36); Mean Corpuscular Volume 96.7 FL (87-102); Mean Platelet Volume 10.4 FL (9.6-12.0); Monocytes % 3.9 % (1.7-12.7); NRBC # 0.02 10*3/uL; Neutrophils % 86.4 % (38.7-73.9); Platelet Count 320 T/CUMM (130-400); Red Blood Count 3.33 MC/CUMM (3.8-5.5); Red Cell Distribution Width 15.6 % (9.3-17.3); White Blood Count 11.9 T/CUMM (4-12)
[2020-07-02 06:02] LABS: Albumin 1.9 G/DL (3.4-5.0); Bilirubin,Total 1.1 MG/DL (0.2-1.0); Calcium 7.8 MG/DL (8.5-10.1); Osmolality,Calculated 327.4 MOS/KG (273-304); Potassium 3.3 MMOL/L (3.5-5.1); Total Protein 6.9 G/DL (5.0-7.5)
[2020-07-02] MEDS: PIPERACILLIN/TAZOBACTAM 3,375 MG in SODIUM CHLORIDE 0.9% 100 ML IV SCH ×3 (06:02→21:33)
[2020-07-02 06:12] LABS: Band Neutrophils 9 % (0-10); Eosinophils 6 % (0-10); Hypochromasia 1+; Lymphocytes 8 % (20-55); Metamyelocytes 1 %; Microcytosis 1+; Segmented Neutrophils 71 % (50-85); Total Cells Counted 100
[2020-07-02 06:13] LABS: Platelet Estimate Normal
[2020-07-02] MEDS ORDERED: LACTATED RINGERS 1,000 ML IV ONE (11:16)
[2020-07-02] MEDS ORDERED: METOPROLOL TARTRATE 5 MG/5 ML VIAL IV PRN (12:35)
[2020-07-02] MEDS: POLYVINYL ALCOHOL 1.4% OPH SOLN 15 ML BOTTLE BOTH EYES SCH ×3 (13:04→21:34)
[2020-07-02] MEDS: BACLOFEN 10 MG TABLET PEG SCH ×2 (14:07→21:33)
[2020-07-02] MEDS: fentaNYL 50 MCG/HR PATCH TRANSDERM SCH (14:07)
[2020-07-02] MEDS: ALBUMIN 25% 12.5 GM in PREMIX 1 EACH IV SCH (16:02)
[2020-07-02] MEDS: HYDROcod/ACETAMIN 7.5-325 MG/15 ML UDCUP PEG SCH (21:32)
[2020-07-02] MEDS: SERTRALINE 25 MG TABLET PEG SCH (21:33)
[2020-07-02] MEDS: levETIRAcetam LIQUID 100 MG/ML 30 ML/BOTTLE PEG SCH (21:33)
[2020-07-03] MEDS: ALBUMIN 25% 12.5 GM in PREMIX 1 EACH IV SCH ×3 (00:18→17:01)
[2020-07-03] MEDS: LACTATED RINGERS 1,000 ML IV SCH ×3 (03:18→19:50)
[2020-07-03 03:27] LABS: Basophils % 0.1 % (0.0-0.8); Eosinophils # 0.9 10*3/uL (0.0-0.87); Hematocrit 26.7 VOL% (42.0-52.0); Hemoglobin 8.3 GM/DL (14.0-18.0); Immature Granulocytes % 0.5 %; Immature Granulocytes Absolute 0.06 #; Lymphocytes # 1.1 10*3/uL (1.4-4.0); Lymphocytes % 10.2 % (21.2-54.2); Mean Corpuscular HGB Conc 31.1 GM/DL (32-36); Mean Corpuscular Volume 97.1 FL (87-102); Mean Platelet Volume 10.6 FL (9.6-12.0); NRBC # 0.02 10*3/uL; Neutrophils % 77.2 % (38.7-73.9); Platelet Count 256 T/CUMM (130-400); Red Blood Count 2.75 MC/CUMM (3.8-5.5); Red Cell Distribution Width 15.9 % (9.3-17.3); White Blood Count 10.9 T/CUMM (4-12)
[2020-07-03 03:51] LABS: Calcium 7.9 MG/DL (8.5-10.1); Osmolality,Calculated 327.3 MOS/KG (273-304); Potassium 3.6 MMOL/L (3.5-5.1)
[2020-07-03 04:19] LABS: Band Neutrophils 1 % (0-10); Eosinophils 8 % (0-10); Hypochromasia Slight; Lymphocytes 8 % (20-55); Platelet Estimate Normal; Segmented Neutrophils 81 % (50-85); Total Cells Counted 100
[2020-07-03] MEDS: PIPERACILLIN/TAZOBACTAM 3,375 MG in SODIUM CHLORIDE 0.9% 100 ML IV SCH ×3 (05:48→21:25)
[2020-07-03] MEDS: levETIRAcetam LIQUID 100 MG/ML 30 ML/BOTTLE PEG SCH ×2 (08:55→20:31)
[2020-07-03] MEDS: POLYVINYL ALCOHOL 1.4% OPH SOLN 15 ML BOTTLE BOTH EYES SCH ×4 (08:55→20:30)
[2020-07-03] MEDS: SODIUM HYPOCHLORITE 0.25% IRRIG 473 ML BOTTLE TOP SCH (08:56)
[2020-07-03] MEDS: HYDROcod/ACETAMIN 7.5-325 MG/15 ML UDCUP PEG SCH ×2 (08:56→20:31)
[2020-07-03] MEDS: BACLOFEN 10 MG TABLET PEG SCH ×3 (08:56→20:31)
[2020-07-03] MEDS: COLLAGENASE OINT 30 GM TUBE TOP SCH (08:56)
[2020-07-03] MEDS: ACETYLCYSTEINE 20% 800 MG/4 ML VIAL RESP TX SCH ×2 (13:27→19:35)
[2020-07-03] MEDS: ALBUTEROL 2.5 MG/3 ML NEB RESP TX SCH (19:35)
[2020-07-03] MEDS: SERTRALINE 25 MG TABLET PEG SCH (20:31)
[2020-07-04] MEDS: ACETYLCYSTEINE 20% 800 MG/4 ML VIAL RESP TX SCH ×4 (01:07→20:05)
[2020-07-04] MEDS: ALBUTEROL 2.5 MG/3 ML NEB RESP TX SCH ×4 (01:07→20:05)
[2020-07-04] MEDS: ALBUMIN 25% 12.5 GM in PREMIX 1 EACH IV SCH ×2 (01:13→10:32)
[2020-07-04] MEDS: LACTATED RINGERS 1,000 ML IV SCH ×2 (02:59→12:40)
[2020-07-04 04:30] LABS: Basophils % 0.2 % (0.0-0.8); Eosinophils # 0.9 10*3/uL (0.0-0.87); Eosinophils % 9.8 % (0.00-10.9); Hematocrit 25.1 VOL% (42.0-52.0); Hemoglobin 7.7 GM/DL (14.0-18.0); Immature Granulocytes % 0.7 %; Immature Granulocytes Absolute 0.06 #; Lymphocytes # 1.7 10*3/uL (1.4-4.0); Lymphocytes % 19.5 % (21.2-54.2); Mean Corpuscular HGB Conc 30.7 GM/DL (32-36); Mean Platelet Volume 10.5 FL (9.6-12.0); Monocytes % 6.9 % (1.7-12.7); NRBC # 0.02 10*3/uL; Neutrophils % 62.9 % (38.7-73.9); Platelet Count 242 T/CUMM (130-400); Red Blood Count 2.56 MC/CUMM (3.8-5.5); Red Cell Distribution Width 15.9 % (9.3-17.3); White Blood Count 8.7 T/CUMM (4-12)
[2020-07-04 04:53] LABS: Calcium 8.3 MG/DL (8.5-10.1); Osmolality,Calculated 328.4 MOS/KG (273-304); Potassium 3.5 MMOL/L (3.5-5.1)
[2020-07-04 05:02] LABS: Eosinophils 6 % (0-10); Hypochromasia 2+; Lymphocytes 19 % (20-55); Microcytosis 1+; Nucleated Red Blood Cells 2 (0-5); Platelet Estimate Adequate; Segmented Neutrophils 70 % (50-85); Total Cells Counted 100
[2020-07-04] MEDS: PIPERACILLIN/TAZOBACTAM 3,375 MG in SODIUM CHLORIDE 0.9% 100 ML IV SCH ×2 (05:40→14:31)
[2020-07-04] MEDS: POLYVINYL ALCOHOL 1.4% OPH SOLN 15 ML BOTTLE BOTH EYES SCH ×3 (10:34→17:30)
[2020-07-04] MEDS: BACLOFEN 10 MG TABLET PEG SCH ×3 (10:35→23:22)
[2020-07-04] MEDS: SODIUM HYPOCHLORITE 0.25% IRRIG 473 ML BOTTLE TOP SCH (10:35)
[2020-07-04] MEDS: HYDROcod/ACETAMIN 7.5-325 MG/15 ML UDCUP PEG SCH ×2 (10:35→23:19)
[2020-07-04] MEDS: COLLAGENASE OINT 30 GM TUBE TOP SCH (10:37)
[2020-07-04] MEDS: levETIRAcetam LIQUID 100 MG/ML 30 ML/BOTTLE PEG SCH ×2 (12:40→23:20)
[2020-07-04] MEDS: PANTOPRAZOLE 40 MG VIAL IV SCH (23:19)
[2020-07-04] MEDS: SERTRALINE 25 MG TABLET PEG SCH (23:22)
[2020-07-05] MEDS: POLYVINYL ALCOHOL 1.4% OPH SOLN 15 ML BOTTLE BOTH EYES SCH ×5 (00:24→22:24)
[2020-07-05] MEDS: PIPERACILLIN/TAZOBACTAM 3,375 MG in SODIUM CHLORIDE 0.9% 100 ML IV SCH (00:40)
[2020-07-05] MEDS: ACETYLCYSTEINE 20% 800 MG/4 ML VIAL RESP TX SCH ×4 (01:38→19:27)
[2020-07-05] MEDS: ALBUTEROL 2.5 MG/3 ML NEB RESP TX SCH ×4 (01:59→19:27)
[2020-07-05 03:49] LABS: Basophils % 0.2 % (0.0-0.8); Eosinophils # 0.6 10*3/uL (0.0-0.87); Eosinophils % 6.2 % (0.00-10.9); Hematocrit 24.8 VOL% (42.0-52.0); Hemoglobin 7.8 GM/DL (14.0-18.0); Immature Granulocytes % 1.2 %; Immature Granulocytes Absolute 0.12 #; Lymphocytes # 2.8 10*3/uL (1.4-4.0); Lymphocytes % 27.3 % (21.2-54.2); Mean Corpuscular HGB Conc 31.5 GM/DL (32-36); Mean Corpuscular Volume 96.1 FL (87-102); Mean Platelet Volume 10.4 FL (9.6-12.0); Monocytes % 7.6 % (1.7-12.7); NRBC # 0.02 10*3/uL; Neutrophils % 57.5 % (38.7-73.9); Platelet Count 264 T/CUMM (130-400); Red Blood Count 2.58 MC/CUMM (3.8-5.5); Red Cell Distribution Width 15.7 % (9.3-17.3); White Blood Count 10.3 T/CUMM (4-12)
[2020-07-05 04:08] LABS: Calcium 8.4 MG/DL (8.5-10.1); Osmolality,Calculated 324.7 MOS/KG (273-304); Potassium 3.6 MMOL/L (3.5-5.1)
[2020-07-05 04:16] LABS: Band Neutrophils 1 % (0-10); Eosinophils 7 % (0-10); Hypochromasia 1+; Lymphocytes 22 % (20-55); Segmented Neutrophils 64 % (50-85); Total Cells Counted 100
[2020-07-05 04:17] LABS: Microcytosis 1+; Platelet Estimate Normal; Target Cells Slight
[2020-07-05] MEDS: DEXTROSE 5% NACL 0.45% 1,000 ML IV SCH ×2 (09:08→17:15)
[2020-07-05] MEDS: SODIUM HYPOCHLORITE 0.25% IRRIG 473 ML BOTTLE TOP SCH (09:08)
[2020-07-05] MEDS: COLLAGENASE OINT 30 GM TUBE TOP SCH (09:08)
[2020-07-05] MEDS: PANTOPRAZOLE 40 MG VIAL IV SCH (09:09)
[2020-07-05] MEDS: HYDROcod/ACETAMIN 7.5-325 MG/15 ML UDCUP PEG SCH ×2 (09:09→22:23)
[2020-07-05] MEDS: BACLOFEN 10 MG TABLET PEG SCH ×3 (09:10→22:24)
[2020-07-05] MEDS: levETIRAcetam LIQUID 100 MG/ML 30 ML/BOTTLE PEG SCH ×2 (09:10→23:53)
[2020-07-05] MEDS: LACTATED RINGERS 1,000 ML IV SCH (14:14)
[2020-07-05] MEDS: fentaNYL 50 MCG/HR PATCH TRANSDERM SCH (16:10)
[2020-07-05] MEDS: MEROPENEM 500 MG in SODIUM CHLORIDE 0.9% 100 ML IV SCH (16:31)
[2020-07-05] MEDS: SERTRALINE 25 MG TABLET PEG SCH (22:24)
[2020-07-06] MEDS: ACETYLCYSTEINE 20% 800 MG/4 ML VIAL RESP TX SCH ×5 (00:11→19:37)
[2020-07-06] MEDS: ALBUTEROL 2.5 MG/3 ML NEB RESP TX SCH ×4 (00:11→19:37)
[2020-07-06] MEDS: DEXTROSE 5% NACL 0.45% 1,000 ML IV SCH ×2 (05:20→14:09)
[2020-07-06 05:47] LABS: Basophils % 0.2 % (0.0-0.8); Eosinophils # 0.6 10*3/uL (0.0-0.87); Eosinophils % 5.3 % (0.00-10.9); Hematocrit 24.7 VOL% (42.0-52.0); Hemoglobin 7.7 GM/DL (14.0-18.0); Immature Granulocytes % 4.3 %; Immature Granulocytes Absolute 0.52 #; Lymphocytes # 4.1 10*3/uL (1.4-4.0); Lymphocytes % 33.4 % (21.2-54.2); Mean Corpuscular HGB Conc 31.2 GM/DL (32-36); Mean Corpuscular Volume 96.5 FL (87-102); Mean Platelet Volume 10.6 FL (9.6-12.0); Monocytes % 9.8 % (1.7-12.7); NRBC # 0.03 10*3/uL; Platelet Count 314 T/CUMM (130-400); Red Blood Count 2.56 MC/CUMM (3.8-5.5); Red Cell Distribution Width 15.6 % (9.3-17.3); White Blood Count 12.2 T/CUMM (4-12)
[2020-07-06 06:02] LABS: Calcium 8.5 MG/DL (8.5-10.1); Osmolality,Calculated 323.8 MOS/KG (273-304); Potassium 3.6 MMOL/L (3.5-5.1)
[2020-07-06 06:10] LABS: Eosinophils 2 % (0-10); Hypochromasia 2+; Lymphocytes 38 % (20-55); Microcytosis 1+; Nucleated Red Blood Cells 2 (0-5); Platelet Estimate Adequate; Segmented Neutrophils 55 % (50-85); Total Cells Counted 100
[2020-07-06] MEDS: POLYVINYL ALCOHOL 1.4% OPH SOLN 15 ML BOTTLE BOTH EYES SCH ×4 (08:20→21:54)
[2020-07-06] MEDS: SODIUM HYPOCHLORITE 0.25% IRRIG 473 ML BOTTLE TOP SCH (08:20)
[2020-07-06] MEDS: PANTOPRAZOLE 40 MG VIAL IV SCH (08:20)
[2020-07-06] MEDS: COLLAGENASE OINT 30 GM TUBE TOP SCH (08:20)
[2020-07-06] MEDS: levETIRAcetam LIQUID 100 MG/ML 30 ML/BOTTLE PEG SCH ×2 (08:21→21:38)
[2020-07-06] MEDS: BACLOFEN 10 MG TABLET PEG SCH ×3 (08:21→21:38)
[2020-07-06] MEDS: HYDROcod/ACETAMIN 7.5-325 MG/15 ML UDCUP PEG SCH ×2 (08:21→21:38)
[2020-07-06] MEDS ORDERED: BUPIVACAINE MPF 0.25% 30 ML VIAL ONE (11:12)
[2020-07-06] MEDS ORDERED: TISSUE ADHESIVE 1 EACH APPLICATOR TOP ONE (11:13)
[2020-07-06] MEDS ORDERED: LIDOCAINE 1% 20 ML VIAL ONE (11:13)
[2020-07-06] MEDS ORDERED: HEPARIN 5,000 UNIT/1 ML VIAL ONE (11:13)
[2020-07-06] MEDS ORDERED: SODIUM CHLORIDE 0.9% 250 ML IV SCH (11:30)
[2020-07-06 14:11] LABS: Hepatitis B Core IgM Quant < 0.05 Index; Hepatitis B Surface Ag Quant < 0.10 Index; Hepatitis B Surface Ag Result Non-Reactive (NonReactive); Hepatitis C Virus Ab Result Non-Reactive (NonReactive)
[2020-07-06] MEDS ORDERED: HEPARIN 10,000 UNIT/10 ML VIAL IV PRN (14:45)
[2020-07-06] MEDS: MEROPENEM 500 MG in SODIUM CHLORIDE 0.9% 100 ML IV SCH (16:15)
[2020-07-06] MEDS: SERTRALINE 25 MG TABLET PEG SCH (21:38)
[2020-07-07] MEDS: ACETYLCYSTEINE 20% 800 MG/4 ML VIAL RESP TX SCH ×4 (00:20→19:24)
[2020-07-07] MEDS: ALBUTEROL 2.5 MG/3 ML NEB RESP TX SCH ×4 (00:20→19:24)
[2020-07-07] MEDS: DEXTROSE 5% NACL 0.45% 1,000 ML IV SCH ×2 (01:10→13:25)
[2020-07-07 05:41] LABS: Basophils # 0.1 10*3/uL (0.0-0.2); Basophils % 0.4 % (0.0-0.8); Eosinophils # 0.5 10*3/uL (0.0-0.87); Eosinophils % 4.5 % (0.00-10.9); Hematocrit 25.6 VOL% (42.0-52.0); Hemoglobin 8.2 GM/DL (14.0-18.0); Immature Granulocytes % 8.8 %; Immature Granulocytes Absolute 1.03 #; Lymphocytes # 3.8 10*3/uL (1.4-4.0); Lymphocytes % 32.7 % (21.2-54.2); Mean Corpuscular Volume 94.5 FL (87-102); Mean Platelet Volume 10.4 FL (9.6-12.0); Monocytes % 9.4 % (1.7-12.7); NRBC # 0.02 10*3/uL; Neutrophils % 44.2 % (38.7-73.9); Platelet Count 384 T/CUMM (130-400); Red Blood Count 2.71 MC/CUMM (3.8-5.5); Red Cell Distribution Width 15.4 % (9.3-17.3); White Blood Count 11.7 T/CUMM (4-12)
[2020-07-07 05:55] LABS: Calcium 8.5 MG/DL (8.5-10.1); Osmolality,Calculated 309.1 MOS/KG (273-304); Potassium 3.5 MMOL/L (3.5-5.1)
[2020-07-07 06:06] LABS: Band Neutrophils 3 % (0-10); Eosinophils 8 % (0-10); Hypochromasia 1+; Lymphocytes 27 % (20-55); Microcytosis 1+; Nucleated Red Blood Cells 1 (0-5); Platelet Estimate Adequate; Segmented Neutrophils 52 % (50-85); Total Cells Counted 100
[2020-07-07] MEDS: levETIRAcetam LIQUID 100 MG/ML 30 ML/BOTTLE PEG SCH ×2 (08:40→21:57)
[2020-07-07] MEDS: POLYVINYL ALCOHOL 1.4% OPH SOLN 15 ML BOTTLE BOTH EYES SCH ×4 (08:40→21:57)
[2020-07-07] MEDS: BACLOFEN 10 MG TABLET PEG SCH ×3 (08:41→21:56)
[2020-07-07] MEDS: HYDROcod/ACETAMIN 7.5-325 MG/15 ML UDCUP PEG SCH ×2 (08:41→21:56)
[2020-07-07] MEDS: SODIUM HYPOCHLORITE 0.25% IRRIG 473 ML BOTTLE TOP SCH (11:10)
[2020-07-07] MEDS: COLLAGENASE OINT 30 GM TUBE TOP SCH (11:10)
[2020-07-07] MEDS: MEROPENEM 500 MG in SODIUM CHLORIDE 0.9% 100 ML IV SCH (18:04)
[2020-07-07] MEDS: SERTRALINE 25 MG TABLET PEG SCH (21:57)
[2020-07-08] MEDS: ACETYLCYSTEINE 20% 800 MG/4 ML VIAL RESP TX SCH ×4 (01:30→19:58)
[2020-07-08] MEDS: ALBUTEROL 2.5 MG/3 ML NEB RESP TX SCH ×4 (01:30→19:58)
[2020-07-08 06:04] LABS: Basophils # 0.1 10*3/uL (0.0-0.2); Basophils % 0.4 % (0.0-0.8); Eosinophils # 0.4 10*3/uL (0.0-0.87); Hematocrit 25.7 VOL% (42.0-52.0); Hemoglobin 8.2 GM/DL (14.0-18.0); Immature Granulocytes % 9.9 %; Immature Granulocytes Absolute 1.19 #; Lymphocytes # 3.2 10*3/uL (1.4-4.0); Mean Corpuscular HGB Conc 31.9 GM/DL (32-36); Mean Corpuscular Volume 94.1 FL (87-102); Mean Platelet Volume 10.4 FL (9.6-12.0); Monocytes % 10.3 % (1.7-12.7); Neutrophils % 49.4 % (38.7-73.9); Platelet Count 415 T/CUMM (130-400); Red Blood Count 2.73 MC/CUMM (3.8-5.5); Red Cell Distribution Width 15.5 % (9.3-17.3)
[2020-07-08] MEDS: OMEPRAZOLE ODT 20 MG TABLET PEG SCH (06:10)
[2020-07-08 06:23] LABS: Calcium 8.5 MG/DL (8.5-10.1); Osmolality,Calculated 293.5 MOS/KG (273-304); Potassium 3.4 MMOL/L (3.5-5.1)
[2020-07-08 06:45] LABS: Band Neutrophils 2 % (0-10); Eosinophils 2 % (0-10); Hypochromasia Slight; Lymphocytes 28 % (20-55); Metamyelocytes 1 %; Myelocytes 1 %; Nucleated Red Blood Cells 1 (0-5); Segmented Neutrophils 52 % (50-85); Total Cells Counted 100
[2020-07-08 06:46] LABS: Microcytosis 1+; Platelet Estimate Increased
[2020-07-08] MEDS: HYDROcod/ACETAMIN 7.5-325 MG/15 ML UDCUP PEG SCH ×2 (08:11→21:14)
[2020-07-08] MEDS: BACLOFEN 10 MG TABLET PEG SCH ×3 (08:11→21:13)
[2020-07-08] MEDS: levETIRAcetam LIQUID 100 MG/ML 30 ML/BOTTLE PEG SCH ×2 (08:11→21:14)
[2020-07-08] MEDS: POLYVINYL ALCOHOL 1.4% OPH SOLN 15 ML BOTTLE BOTH EYES SCH ×4 (08:12→21:14)
[2020-07-08] MEDS: SODIUM HYPOCHLORITE 0.25% IRRIG 473 ML BOTTLE TOP SCH (13:37)
[2020-07-08] MEDS: COLLAGENASE OINT 30 GM TUBE TOP SCH (13:37)
[2020-07-08] MEDS: MEROPENEM 500 MG in SODIUM CHLORIDE 0.9% 100 ML IV SCH (16:11)
[2020-07-08] MEDS: fentaNYL 50 MCG/HR PATCH TRANSDERM SCH (16:12)
[2020-07-08] MEDS: SERTRALINE 25 MG TABLET PEG SCH (21:13)
[2020-07-09] MEDS: ALBUTEROL 2.5 MG/3 ML NEB RESP TX SCH ×4 (01:10→19:21)
[2020-07-09] MEDS: ACETYLCYSTEINE 20% 800 MG/4 ML VIAL RESP TX SCH ×4 (01:10→19:21)
[2020-07-09 05:07] LABS: Basophils % 0.3 % (0.0-0.8); Eosinophils # 0.4 10*3/uL (0.0-0.87); Eosinophils % 3.5 % (0.00-10.9); Hematocrit 23.1 VOL% (42.0-52.0); Hemoglobin 7.4 GM/DL (14.0-18.0); Immature Granulocytes Absolute 0.73 #; Lymphocytes # 2.8 10*3/uL (1.4-4.0); Lymphocytes % 22.9 % (21.2-54.2); Mean Corpuscular Volume 93.9 FL (87-102); Mean Platelet Volume 10.2 FL (9.6-12.0); Monocytes % 10.3 % (1.7-12.7); Platelet Count 379 T/CUMM (130-400); Red Blood Count 2.46 MC/CUMM (3.8-5.5); Red Cell Distribution Width 15.1 % (9.3-17.3); White Blood Count 12.1 T/CUMM (4-12)
[2020-07-09 05:32] LABS: Calcium 8.6 MG/DL (8.5-10.1); Osmolality,Calculated 285.4 MOS/KG (273-304); Potassium 3.4 MMOL/L (3.5-5.1)
[2020-07-09 05:35] LABS: Band Neutrophils 1 % (0-10); Eosinophils 4 % (0-10); Hypochromasia 1+; Lymphocytes 25 % (20-55); Metamyelocytes 1 %; Microcytosis 1+; Segmented Neutrophils 62 % (50-85); Total Cells Counted 100
[2020-07-09 05:36] LABS: Platelet Estimate Normal
[2020-07-09] MEDS: OMEPRAZOLE ODT 20 MG TABLET PEG SCH (05:42)
[2020-07-09] MEDS: HYDROcod/ACETAMIN 7.5-325 MG/15 ML UDCUP PEG SCH ×2 (09:04→22:14)
[2020-07-09] MEDS: BACLOFEN 10 MG TABLET PEG SCH ×3 (09:04→22:15)
[2020-07-09] MEDS: POLYVINYL ALCOHOL 1.4% OPH SOLN 15 ML BOTTLE BOTH EYES SCH ×4 (09:05→22:16)
[2020-07-09] MEDS: levETIRAcetam LIQUID 100 MG/ML 30 ML/BOTTLE PEG SCH ×2 (09:05→22:15)
[2020-07-09] MEDS: SODIUM HYPOCHLORITE 0.25% IRRIG 473 ML BOTTLE TOP SCH (12:37)
[2020-07-09] MEDS: COLLAGENASE OINT 30 GM TUBE TOP SCH (12:37)
[2020-07-09] MEDS: MEROPENEM 500 MG in SODIUM CHLORIDE 0.9% 100 ML IV SCH (16:23)
[2020-07-09] MEDS: SERTRALINE 25 MG TABLET PEG SCH (22:15)
[2020-07-10] MEDS: ACETYLCYSTEINE 20% 800 MG/4 ML VIAL RESP TX SCH ×4 (00:18→19:08)
[2020-07-10] MEDS: ALBUTEROL 2.5 MG/3 ML NEB RESP TX SCH ×4 (00:18→19:08)
[2020-07-10 05:23] LABS: Basophils % 0.3 % (0.0-0.8); Eosinophils # 0.5 10*3/uL (0.0-0.87); Eosinophils % 4.2 % (0.00-10.9); Hemoglobin 7.3 GM/DL (14.0-18.0); Immature Granulocytes % 4.2 %; Immature Granulocytes Absolute 0.52 #; Lymphocytes # 2.7 10*3/uL (1.4-4.0); Mean Corpuscular HGB Conc 31.7 GM/DL (32-36); Mean Corpuscular Volume 93.9 FL (87-102); Mean Platelet Volume 10.1 FL (9.6-12.0); Monocytes % 8.1 % (1.7-12.7); Neutrophils % 61.2 % (38.7-73.9); Platelet Count 398 T/CUMM (130-400); Red Blood Count 2.45 MC/CUMM (3.8-5.5); Red Cell Distribution Width 15.3 % (9.3-17.3); White Blood Count 12.3 T/CUMM (4-12)
[2020-07-10] MEDS: OMEPRAZOLE ODT 20 MG TABLET PEG SCH (05:33)
[2020-07-10 05:41] LABS: Calcium 8.6 MG/DL (8.5-10.1); Osmolality,Calculated 284.7 MOS/KG (273-304); Potassium 3.3 MMOL/L (3.5-5.1)
[2020-07-10 06:51] LABS: Anisocytosis 1+; Eosinophils 5 % (0-10); Lymphocytes 19 % (20-55); Microcytosis Slight; Segmented Neutrophils 76 % (50-85); Total Cells Counted 100
[2020-07-10 06:52] LABS: Hypochromasia 1+; Macrocytosis Slight
[2020-07-10 06:54] LABS: Burr Cells Few; Platelet Estimate Adequate; Polychromasia Slight; Schistocytes 1+
[2020-07-10] MEDS: COLLAGENASE OINT 30 GM TUBE TOP SCH (09:00)
[2020-07-10] MEDS: SODIUM HYPOCHLORITE 0.25% IRRIG 473 ML BOTTLE TOP SCH (09:00)
[2020-07-10] MEDS: POLYVINYL ALCOHOL 1.4% OPH SOLN 15 ML BOTTLE BOTH EYES SCH ×4 (09:00→21:35)
[2020-07-10] MEDS: levETIRAcetam LIQUID 100 MG/ML 30 ML/BOTTLE PEG SCH ×2 (09:01→22:20)
[2020-07-10] MEDS: BACLOFEN 10 MG TABLET PEG SCH ×3 (09:02→21:35)
[2020-07-10] MEDS: MEROPENEM 500 MG in SODIUM CHLORIDE 0.9% 100 ML IV SCH (16:16)
[2020-07-10] MEDS: SERTRALINE 25 MG TABLET PEG SCH (21:35)
[2020-07-11] MEDS: ACETYLCYSTEINE 20% 800 MG/4 ML VIAL RESP TX SCH ×4 (00:03→19:25)
[2020-07-11] MEDS: ALBUTEROL 2.5 MG/3 ML NEB RESP TX SCH ×4 (00:03→19:25)
[2020-07-11] MEDS: OMEPRAZOLE ODT 20 MG TABLET PEG SCH (05:30)
[2020-07-11 06:18] LABS: Basophils # 0.1 10*3/uL (0.0-0.2); Basophils % 0.4 % (0.0-0.8); Eosinophils # 0.5 10*3/uL (0.0-0.87); Eosinophils % 3.7 % (0.00-10.9); Hematocrit 25.1 VOL% (42.0-52.0); Hemoglobin 8.1 GM/DL (14.0-18.0); Immature Granulocytes % 3.5 %; Immature Granulocytes Absolute 0.43 #; Lymphocytes # 2.3 10*3/uL (1.4-4.0); Lymphocytes % 18.6 % (21.2-54.2); Mean Corpuscular HGB Conc 32.3 GM/DL (32-36); Mean Corpuscular Volume 94.4 FL (87-102); Mean Platelet Volume 10.2 FL (9.6-12.0); Neutrophils % 65.8 % (38.7-73.9); Platelet Count 379 T/CUMM (130-400); Red Blood Count 2.66 MC/CUMM (3.8-5.5); Red Cell Distribution Width 15.2 % (9.3-17.3); White Blood Count 12.4 T/CUMM (4-12)
[2020-07-11 07:06] LABS: Calcium 8.6 MG/DL (8.5-10.1); Potassium 3.5 MMOL/L (3.5-5.1)
[2020-07-11] MEDS: SODIUM HYPOCHLORITE 0.25% IRRIG 473 ML BOTTLE TOP SCH (09:02)
[2020-07-11] MEDS: COLLAGENASE OINT 30 GM TUBE TOP SCH (09:02)
[2020-07-11] MEDS: POLYVINYL ALCOHOL 1.4% OPH SOLN 15 ML BOTTLE BOTH EYES SCH ×4 (09:05→20:54)
[2020-07-11] MEDS: levETIRAcetam LIQUID 100 MG/ML 30 ML/BOTTLE PEG SCH ×2 (09:05→20:31)
[2020-07-11] MEDS: BACLOFEN 10 MG TABLET PEG SCH ×3 (09:06→20:31)
[2020-07-11] MEDS: MEROPENEM 500 MG in SODIUM CHLORIDE 0.9% 100 ML IV SCH (17:49)
[2020-07-11] MEDS: SERTRALINE 25 MG TABLET PEG SCH (20:31)
[2020-07-12] MEDS: ACETYLCYSTEINE 20% 800 MG/4 ML VIAL RESP TX SCH ×4 (01:05→19:38)
[2020-07-12] MEDS: ALBUTEROL 2.5 MG/3 ML NEB RESP TX SCH ×4 (01:05→19:38)
[2020-07-12 05:29] LABS: Basophils % 0.4 % (0.0-0.8); Eosinophils # 0.4 10*3/uL (0.0-0.87); Eosinophils % 3.3 % (0.00-10.9); Hematocrit 23.4 VOL% (42.0-52.0); Hemoglobin 7.5 GM/DL (14.0-18.0); Immature Granulocytes % 1.6 %; Immature Granulocytes Absolute 0.17 #; Lymphocytes # 2.4 10*3/uL (1.4-4.0); Lymphocytes % 22.1 % (21.2-54.2); Mean Corpuscular HGB Conc 32.1 GM/DL (32-36); Mean Corpuscular Volume 94.7 FL (87-102); Monocytes % 7.9 % (1.7-12.7); Neutrophils % 64.7 % (38.7-73.9); Platelet Count 389 T/CUMM (130-400); Red Blood Count 2.47 MC/CUMM (3.8-5.5); Red Cell Distribution Width 14.7 % (9.3-17.3); White Blood Count 10.8 T/CUMM (4-12)
[2020-07-12 05:48] LABS: Calcium 8.9 MG/DL (8.5-10.1); Osmolality,Calculated 274.4 MOS/KG (273-304); Potassium 3.6 MMOL/L (3.5-5.1)
[2020-07-12] MEDS: OMEPRAZOLE ODT 20 MG TABLET PEG SCH (05:54)
[2020-07-12] MEDS: levETIRAcetam LIQUID 100 MG/ML 30 ML/BOTTLE PEG SCH ×2 (08:36→22:55)
[2020-07-12] MEDS: BACLOFEN 10 MG TABLET PEG SCH ×3 (08:36→22:57)
[2020-07-12] MEDS: SODIUM HYPOCHLORITE 0.25% IRRIG 473 ML BOTTLE TOP SCH (08:36)
[2020-07-12] MEDS: POLYVINYL ALCOHOL 1.4% OPH SOLN 15 ML BOTTLE BOTH EYES SCH ×4 (08:36→22:55)
[2020-07-12] MEDS: COLLAGENASE OINT 30 GM TUBE TOP SCH (08:37)
[2020-07-12] MEDS: SERTRALINE 25 MG TABLET PEG SCH (22:57)
[2020-07-13] MEDS: ALBUTEROL 2.5 MG/3 ML NEB RESP TX SCH ×4 (00:17→19:20)
[2020-07-13] MEDS: ACETYLCYSTEINE 20% 800 MG/4 ML VIAL RESP TX SCH ×4 (00:17→19:20)
[2020-07-13 05:55] LABS: Basophils % 0.4 % (0.0-0.8); Eosinophils # 0.3 10*3/uL (0.0-0.87); Eosinophils % 2.8 % (0.00-10.9); Hematocrit 23.7 VOL% (42.0-52.0); Hemoglobin 7.7 GM/DL (14.0-18.0); Immature Granulocytes % 1.3 %; Immature Granulocytes Absolute 0.15 #; Lymphocytes # 2.5 10*3/uL (1.4-4.0); Lymphocytes % 21.6 % (21.2-54.2); Mean Corpuscular HGB Conc 32.5 GM/DL (32-36); Mean Corpuscular Volume 92.2 FL (87-102); Mean Platelet Volume 10.3 FL (9.6-12.0); Monocytes % 8.8 % (1.7-12.7); Neutrophils % 65.1 % (38.7-73.9); Platelet Count 422 T/CUMM (130-400); Red Blood Count 2.57 MC/CUMM (3.8-5.5); Red Cell Distribution Width 14.7 % (9.3-17.3); White Blood Count 11.4 T/CUMM (4-12)
[2020-07-13 06:01] LABS: Calcium 8.7 MG/DL (8.5-10.1); Osmolality,Calculated 285.7 MOS/KG (273-304); Potassium 3.5 MMOL/L (3.5-5.1)
[2020-07-13] MEDS: OMEPRAZOLE ODT 20 MG TABLET PEG SCH (06:24)
[2020-07-13] MEDS: POLYVINYL ALCOHOL 1.4% OPH SOLN 15 ML BOTTLE BOTH EYES SCH ×4 (08:51→22:41)
[2020-07-13] MEDS: BACLOFEN 10 MG TABLET PEG SCH ×3 (08:52→22:41)
[2020-07-13] MEDS: SODIUM HYPOCHLORITE 0.25% IRRIG 473 ML BOTTLE TOP SCH (08:52)
[2020-07-13] MEDS: levETIRAcetam LIQUID 100 MG/ML 30 ML/BOTTLE PEG SCH ×2 (08:52→22:40)
[2020-07-13] MEDS: COLLAGENASE OINT 30 GM TUBE TOP SCH (08:52)
[2020-07-13] MEDS: SERTRALINE 25 MG TABLET PEG SCH (22:41)
[2020-07-14] MEDS: ACETYLCYSTEINE 20% 800 MG/4 ML VIAL RESP TX SCH ×4 (00:54→19:47)
[2020-07-14] MEDS: ALBUTEROL 2.5 MG/3 ML NEB RESP TX SCH ×4 (00:54→19:47)
[2020-07-14 05:18] LABS: Basophils % 0.4 % (0.0-0.8); Eosinophils # 0.5 10*3/uL (0.0-0.87); Eosinophils % 4.7 % (0.00-10.9); Hematocrit 24.2 VOL% (42.0-52.0); Hemoglobin 7.6 GM/DL (14.0-18.0); Lymphocytes # 2.6 10*3/uL (1.4-4.0); Lymphocytes % 26.2 % (21.2-54.2); Mean Corpuscular HGB Conc 31.4 GM/DL (32-36); Mean Corpuscular Volume 94.2 FL (87-102); Mean Platelet Volume 10.1 FL (9.6-12.0); Monocytes % 9.8 % (1.7-12.7); Neutrophils % 57.9 % (38.7-73.9); Platelet Count 437 T/CUMM (130-400); Red Blood Count 2.57 MC/CUMM (3.8-5.5); Red Cell Distribution Width 14.6 % (9.3-17.3); White Blood Count 9.9 T/CUMM (4-12)
[2020-07-14] MEDS: OMEPRAZOLE ODT 20 MG TABLET PEG SCH ×2 (05:20→07:11)
[2020-07-14 05:36] LABS: Calcium 8.8 MG/DL (8.5-10.1); Osmolality,Calculated 289.5 MOS/KG (273-304); Potassium 3.4 MMOL/L (3.5-5.1)
[2020-07-14] MEDS: COLLAGENASE OINT 30 GM TUBE TOP SCH (09:01)
[2020-07-14] MEDS: SODIUM HYPOCHLORITE 0.25% IRRIG 473 ML BOTTLE TOP SCH (09:01)
[2020-07-14] MEDS: POLYVINYL ALCOHOL 1.4% OPH SOLN 15 ML BOTTLE BOTH EYES SCH ×4 (09:01→20:55)
[2020-07-14] MEDS: levETIRAcetam LIQUID 100 MG/ML 30 ML/BOTTLE PEG SCH ×2 (10:22→20:55)
[2020-07-14] MEDS: BACLOFEN 10 MG TABLET PEG SCH ×3 (10:23→20:50)
[2020-07-14] MEDS: SERTRALINE 25 MG TABLET PEG SCH (20:50)
[2020-07-15] MEDS: ACETYLCYSTEINE 20% 800 MG/4 ML VIAL RESP TX SCH ×2 (00:21→08:02)
[2020-07-15] MEDS: ALBUTEROL 2.5 MG/3 ML NEB RESP TX SCH ×2 (00:21→08:02)
[2020-07-15] MEDS: OMEPRAZOLE ODT 20 MG TABLET PEG SCH (06:21)
[2020-07-15] MEDS ORDERED: LIDOCAINE 1%/EPI INJ 20 ML VIAL ONE (07:24)
[2020-07-15] MEDS ORDERED: SODIUM CHLORIDE 0.9% 250 ML IV SCH (08:30)
[2020-07-15 09:59] LABS: Calcium 9.2 MG/DL (8.5-10.1); Osmolality,Calculated 295.1 MOS/KG (273-304); Potassium 3.5 MMOL/L (3.5-5.1)
[2020-07-15 10:08] VITALS: BP 142/88
[2020-07-15] MEDS: levETIRAcetam LIQUID 100 MG/ML 30 ML/BOTTLE PEG SCH (10:16)
[2020-07-15] MEDS: POLYVINYL ALCOHOL 1.4% OPH SOLN 15 ML BOTTLE BOTH EYES SCH (10:16)
[2020-07-15] MEDS: SODIUM HYPOCHLORITE 0.25% IRRIG 473 ML BOTTLE TOP SCH (10:16)
[2020-07-15] MEDS: COLLAGENASE OINT 30 GM TUBE TOP SCH (10:16)
[2020-07-15] MEDS: BACLOFEN 10 MG TABLET PEG SCH (10:16)
== END 2020-07-15 11:58 | DRG 720 ==
LOC: EDUNIT# → EDBD → N.ED 17:11 → SUATTDRO 21:08 → N.EDINP 21:08 → N.5E 23:54
PROVIDERS: ADMIT Internal Medicine; ATTEND Internal Medicine

== ENCOUNTER 2020-12-02 11:48 | Inpatient (IN) ==
[2020-12-02] MEDS ORDERED: SODIUM CHLORIDE 0.9% 500 ML IV STA (12:22)
[2020-12-02 12:57] LABS: Basophils % 0.2 % (0.0-0.8); Eosinophils % 0.1 % (0.00-10.9); Hematocrit 35.5 VOL% (42.0-52.0); Hemoglobin 11.1 GM/DL (14.0-18.0); Immature Granulocytes Absolute 0.22 #; Lymphocytes # 1.5 10*3/uL (1.4-4.0); Lymphocytes % 6.6 % (21.2-54.2); Mean Corpuscular HGB Conc 31.3 GM/DL (32-36); Mean Platelet Volume 10.7 FL (9.6-12.0); NRBC # 0.04 10*3/uL; Neutrophils % 83.1 % (38.7-73.9); Platelet Count 524 T/CUMM (130-400); Red Blood Count 4.08 MC/CUMM (3.8-5.5); Red Cell Distribution Width 17.6 % (9.3-17.3); White Blood Count 22.3 T/CUMM (4-12)
[2020-12-02 13:13] LABS: Bilirubin,Urine Negative (Negative); Blood, Urine Large mg/dL (Negative); Glucose,Urine (UA) Negative (Negative); Ketones,Urine Negative (Negative); Nitrite,Urine Negative (Negative); Protein,Urine 100 MG/DL; RBC,Urine 4259 /HPF (0-4); Urine Appearance CLOUDY (Clear); Urine Color Red (Yellow); Urine Specific Gravity 1.017 (1.001-1.035); Urine Urobilinogen < 2.0 EU/DL (0.2-1.0)
[2020-12-02 13:23] LABS: Partial Thromboplastin Time 25.1 SECS (23.9-33.8)
[2020-12-02 13:25] LABS: Anisocytosis 2+; Hypochromasia 2+
[2020-12-02 13:26] LABS: Platelet Estimate Normal; Poikilocytosis 1+
[2020-12-02 13:32] LABS: Alanine Aminotransferase 79 U/L (16-61); Albumin 2.7 G/DL (3.4-5.0); Alkaline Phosphatase 263 U/L (45-117); Aspartate Amino Transferase 50 U/L (0-37); Bilirubin,Total < 0.39 MG/DL (0.20-1.00); Blood Urea Nitrogen 113 MG/DL (7-18); Calcium 9.6 MG/DL (8.5-10.1); Carbon Dioxide 26 MMOL/L (21-32); Estimated Glom Filtration Rate 30 ML/MIN; Glucose 151 MG/DL (74-106); Osmolality,Calculated 313.7 MOS/KG (273-304); Potassium 3.7 MMOL/L (3.5-5.1); Sodium 138 MMOL/L (136-145); Total Protein 9.1 G/DL (6.4-8.2)
[2020-12-02] MEDS ORDERED: hydrALAZINE 20 MG/1 ML VIAL IV PRN (14:02)
[2020-12-02] MEDS ORDERED: DEXTROSE 50% 25 GM/50 ML VIAL IV PRN (14:02)
[2020-12-02] MEDS ORDERED: GLUCAGON 1 MG VIAL IM PRN (14:02)
[2020-12-02] MEDS ORDERED: ONDANSETRON 4 MG/2 ML VIAL IV PRN (14:02)
[2020-12-02] MEDS ORDERED: ACETAMINOPHEN 325 MG TABLET PEG PRN (14:02)
[2020-12-02] MEDS: SODIUM CHLORIDE 0.9% 1,000 ML IV SCH ×2 (15:25→21:39)
[2020-12-02] MEDS: HEPARIN 5,000 UNIT/1 ML VIAL SUBCUT SCH (15:29)
[2020-12-02] MEDS: PIPERACILLIN/TAZOBACTAM 3,375 MG in SODIUM CHLORIDE 0.9% 100 ML IV SCH ×2 (15:29→21:38)
[2020-12-02] MEDS ORDERED: ACETAMINOPHEN 500 MG TABLET ONE (15:42)
[2020-12-02] MEDS ORDERED: ACETAMINOPHEN 500 MG TABLET PO ONE (15:53)
[2020-12-02] MEDS: LINEZOLID INJ 600 MG/300 ML PREMIX IV SCH (16:27)
[2020-12-02] MEDS: INSULIN LISPRO 100 UNIT/ML SUBCUT SCH ×2 (17:14→20:36)
[2020-12-03] MEDS: HEPARIN 5,000 UNIT/1 ML VIAL SUBCUT SCH ×2 (03:00→15:24)
[2020-12-03] MEDS ORDERED: ACETAMINOPHEN 500 MG TABLET PEG SCH (04:13)
[2020-12-03] MEDS ORDERED: ACETAMINOPHEN 500 MG TABLET PEG PRN (04:46)
[2020-12-03] MEDS ORDERED: ACETAMINOPHEN 325 MG TABLET PEG PRN (04:49)
[2020-12-03] MEDS: LINEZOLID INJ 600 MG/300 ML PREMIX IV SCH ×2 (04:53→20:45)
[2020-12-03] MEDS: PIPERACILLIN/TAZOBACTAM 3,375 MG in SODIUM CHLORIDE 0.9% 100 ML IV SCH ×3 (06:30→21:54)
[2020-12-03 06:34] LABS: Basophils # 0.1 10*3/uL (0.0-0.2); Basophils % 0.3 % (0.0-0.8); Eosinophils % 0.1 % (0.00-10.9); Hemoglobin 9.8 GM/DL (14.0-18.0); Immature Granulocytes % 0.9 %; Immature Granulocytes Absolute 0.16 #; Lymphocytes # 1.3 10*3/uL (1.4-4.0); Lymphocytes % 7.7 % (21.2-54.2); Mean Corpuscular HGB Conc 30.6 GM/DL (32-36); Mean Corpuscular Volume 87.9 FL (87-102); Mean Platelet Volume 10.9 FL (9.6-12.0); Monocytes % 7.9 % (1.7-12.7); Neutrophils % 83.1 % (38.7-73.9); Platelet Count 423 T/CUMM (130-400); Red Blood Count 3.64 MC/CUMM (3.8-5.5); Red Cell Distribution Width 17.1 % (9.3-17.3)
[2020-12-03] MEDS: SODIUM CHLORIDE 0.9% 1,000 ML IV SCH ×2 (06:35→15:49)
[2020-12-03 07:07] LABS: Albumin 2.1 G/DL (3.4-5.0); Bilirubin,Total 0.5 MG/DL (0.20-1.00); Calcium 8.7 MG/DL (8.5-10.1); Potassium 3.7 MMOL/L (3.5-5.1); Thyroid Stimulating Hormone 1.2 uIU/ml (0.358-3.74); Total Protein 8.2 G/DL (6.4-8.2)
[2020-12-03] MEDS ORDERED: NON-FORMULARY MEDICATION (Levetiracetam [Keppra] 1,000 mg Tablet) PO SCH (08:00)
[2020-12-03] MEDS ORDERED: levETIRAcetam 500 MG TABLET PEG SCH (08:00)
[2020-12-03] MEDS: ALBUTEROL/IPRATROPIUM 3 ML NEB RESP TX SCH ×2 (08:30→19:55)
[2020-12-03] MEDS: POLYVINYL ALCOHOL 1.4% OPH SOLN 15 ML BOTTLE BOTH EYES SCH ×4 (08:55→20:46)
[2020-12-03] MEDS: levETIRAcetam LIQUID 100 MG/ML 30 ML/BOTTLE PEG SCH ×2 (08:57→20:46)
[2020-12-03] MEDS: POLYETHYLENE GLYCOL POWDER 17 GM PACK PEG SCH (08:57)
[2020-12-03] MEDS: METOPROLOL TARTRATE 25 MG TABLET PEG SCH ×3 (08:58→20:47)
[2020-12-03] MEDS: PANTOPRAZOLE 40 MG TABLET PO SCH (08:58)
[2020-12-03] MEDS: BACLOFEN 10 MG TABLET PEG SCH ×3 (08:58→20:47)
[2020-12-03] MEDS: INSULIN LISPRO 100 UNIT/ML SUBCUT SCH ×4 (10:17→21:27)
[2020-12-03] MEDS: MENTHOL/ZINC OXIDE OINT 71 GM JAR TOP SCH ×2 (15:30→20:46)
[2020-12-04] MEDS: MORPHINE 2 MG/1 ML SYRINGE IV PRN (03:38)
[2020-12-04] MEDS: HEPARIN 5,000 UNIT/1 ML VIAL SUBCUT SCH ×2 (04:12→16:51)
[2020-12-04] MEDS: PIPERACILLIN/TAZOBACTAM 3,375 MG in SODIUM CHLORIDE 0.9% 100 ML IV SCH ×2 (06:06→18:26)
[2020-12-04 06:19] LABS: Basophils # 0.1 10*3/uL (0.0-0.2); Basophils % 0.4 % (0.0-0.8); Eosinophils # 0.1 10*3/uL (0.0-0.87); Eosinophils % 0.6 % (0.00-10.9); Hematocrit 33.1 VOL% (42.0-52.0); Hemoglobin 9.9 GM/DL (14.0-18.0); Immature Granulocytes % 0.7 %; Immature Granulocytes Absolute 0.08 #; Lymphocytes # 2.1 10*3/uL (1.4-4.0); Lymphocytes % 17.1 % (21.2-54.2); Mean Corpuscular HGB Conc 29.9 GM/DL (32-36); Mean Corpuscular Volume 90.9 FL (87-102); Mean Platelet Volume 10.8 FL (9.6-12.0); NRBC # 0.03 10*3/uL; Neutrophils % 70.2 % (38.7-73.9); Platelet Count 446 T/CUMM (130-400); Red Blood Count 3.64 MC/CUMM (3.8-5.5); Red Cell Distribution Width 17.2 % (9.3-17.3); White Blood Count 12.3 T/CUMM (4-12)
[2020-12-04 07:02] LABS: Albumin 2.1 G/DL (3.4-5.0); Bilirubin,Total 0.6 MG/DL (0.20-1.00); Calcium 9.2 MG/DL (8.5-10.1); Osmolality,Calculated 315.7 MOS/KG (273-304); Potassium 3.5 MMOL/L (3.5-5.1); Total Protein 8.4 G/DL (6.4-8.2)
[2020-12-04] MEDS: ALBUTEROL/IPRATROPIUM 3 ML NEB RESP TX SCH ×2 (07:50→19:10)
[2020-12-04] MEDS ORDERED: IBUPROFEN 400 MG TABLET PO PRN (08:16)
[2020-12-04] MEDS: POLYVINYL ALCOHOL 1.4% OPH SOLN 15 ML BOTTLE BOTH EYES SCH ×4 (08:31→21:00)
[2020-12-04] MEDS: levETIRAcetam LIQUID 100 MG/ML 30 ML/BOTTLE PEG SCH ×2 (08:31→21:00)
[2020-12-04] MEDS: PANTOPRAZOLE 40 MG TABLET PO SCH (08:33)
[2020-12-04] MEDS: BACLOFEN 10 MG TABLET PEG SCH ×3 (08:33→20:56)
[2020-12-04] MEDS: INSULIN LISPRO 100 UNIT/ML SUBCUT SCH ×4 (08:33→21:40)
[2020-12-04] MEDS: METOPROLOL TARTRATE 25 MG TABLET PEG SCH ×3 (08:33→20:56)
[2020-12-04] MEDS: MENTHOL/ZINC OXIDE OINT 71 GM JAR TOP SCH ×2 (10:08→21:00)
[2020-12-04] MEDS: LINEZOLID INJ 600 MG/300 ML PREMIX IV SCH ×2 (10:50→20:56)
[2020-12-04] MEDS: SODIUM CHLORIDE 0.9% 1,000 ML IV SCH (16:49)
[2020-12-04] MEDS: MEROPENEM 500 MG in SODIUM CHLORIDE 0.9% 100 ML IV SCH ×2 (17:32→23:35)
[2020-12-05] MEDS: SODIUM CHLORIDE 0.9% 1,000 ML IV SCH ×2 (02:50→03:27)
[2020-12-05] MEDS: HEPARIN 5,000 UNIT/1 ML VIAL SUBCUT SCH ×2 (02:51→15:10)
[2020-12-05 06:02] LABS: Basophils % 0.4 % (0.0-0.8); Eosinophils # 0.5 10*3/uL (0.0-0.87); Eosinophils % 4.6 % (0.00-10.9); Hemoglobin 8.8 GM/DL (14.0-18.0); Immature Granulocytes % 0.9 %; Immature Granulocytes Absolute 0.09 #; Lymphocytes # 2.3 10*3/uL (1.4-4.0); Lymphocytes % 21.8 % (21.2-54.2); Mean Corpuscular HGB Conc 30.3 GM/DL (32-36); Mean Corpuscular Volume 90.1 FL (87-102); Mean Platelet Volume 10.9 FL (9.6-12.0); Monocytes % 10.8 % (1.7-12.7); NRBC # 0.04 10*3/uL; Neutrophils % 61.5 % (38.7-73.9); Platelet Count 387 T/CUMM (130-400); Red Blood Count 3.22 MC/CUMM (3.8-5.5); White Blood Count 10.4 T/CUMM (4-12)
[2020-12-05 06:38] LABS: Calcium 8.8 MG/DL (8.5-10.1); Osmolality,Calculated 310.4 MOS/KG (273-304); Potassium 3.6 MMOL/L (3.5-5.1)
[2020-12-05] MEDS: ALBUTEROL/IPRATROPIUM 3 ML NEB RESP TX SCH ×2 (07:22→19:26)
[2020-12-05] MEDS: INSULIN LISPRO 100 UNIT/ML SUBCUT SCH ×4 (08:53→22:40)
[2020-12-05] MEDS: MEROPENEM 500 MG in SODIUM CHLORIDE 0.9% 100 ML IV SCH ×3 (09:21→23:26)
[2020-12-05] MEDS: BACLOFEN 10 MG TABLET PEG SCH ×3 (09:21→20:51)
[2020-12-05] MEDS: METOPROLOL TARTRATE 25 MG TABLET PEG SCH ×3 (09:22→20:52)
[2020-12-05] MEDS: MENTHOL/ZINC OXIDE OINT 71 GM JAR TOP SCH ×2 (09:22→20:52)
[2020-12-05] MEDS: levETIRAcetam LIQUID 100 MG/ML 30 ML/BOTTLE PEG SCH ×2 (09:23→20:51)
[2020-12-05] MEDS: POLYVINYL ALCOHOL 1.4% OPH SOLN 15 ML BOTTLE BOTH EYES SCH ×4 (09:23→20:51)
[2020-12-05] MEDS: OMEPRAZOLE ODT 20 MG TABLET PER TUBE SCH (09:27)
[2020-12-05] MEDS: LINEZOLID INJ 600 MG/300 ML PREMIX IV SCH ×2 (10:05→20:51)
[2020-12-05] MEDS: PANTOPRAZOLE 40 MG TABLET PO SCH (10:15)
[2020-12-05] MEDS: SODIUM CHLORIDE 0.45% 1,000 ML IV SCH (10:52)
[2020-12-05] MEDS: fentaNYL 50 MCG/HR PATCH TRANSDERM SCH (14:52)
[2020-12-06] MEDS: SODIUM CHLORIDE 0.9% 1,000 ML IV SCH (00:29)
[2020-12-06] MEDS: SODIUM CHLORIDE 0.45% 1,000 ML IV SCH ×2 (02:45→17:42)
[2020-12-06] MEDS: HEPARIN 5,000 UNIT/1 ML VIAL SUBCUT SCH ×2 (03:18→14:59)
[2020-12-06 05:48] LABS: Basophils % 0.4 % (0.0-0.8); Eosinophils # 0.7 10*3/uL (0.0-0.87); Hematocrit 28.3 VOL% (42.0-52.0); Hemoglobin 8.4 GM/DL (14.0-18.0); Immature Granulocytes % 1.3 %; Immature Granulocytes Absolute 0.12 #; Lymphocytes # 2.7 10*3/uL (1.4-4.0); Lymphocytes % 29.2 % (21.2-54.2); Mean Corpuscular HGB Conc 29.7 GM/DL (32-36); Mean Corpuscular Volume 90.1 FL (87-102); Mean Platelet Volume 10.4 FL (9.6-12.0); Monocytes % 10.4 % (1.7-12.7); NRBC # 0.02 10*3/uL; Neutrophils % 50.7 % (38.7-73.9); Platelet Count 390 T/CUMM (130-400); Red Blood Count 3.14 MC/CUMM (3.8-5.5); Red Cell Distribution Width 17.2 % (9.3-17.3); White Blood Count 9.2 T/CUMM (4-12)
[2020-12-06 06:16] LABS: Alanine Aminotransferase 78 U/L (16-61); Albumin 1.9 G/DL (3.4-5.0); Alkaline Phosphatase 181 U/L (45-117); Aspartate Amino Transferase 40 U/L (0-37); Bilirubin,Total < 0.39 MG/DL (0.20-1.00); Blood Urea Nitrogen 48 MG/DL (7-18); Calcium 8.7 MG/DL (8.5-10.1); Carbon Dioxide 25 MMOL/L (21-32); Estimated Glom Filtration Rate 47 ML/MIN; Glucose 97 MG/DL (74-106); Osmolality,Calculated 306.3 MOS/KG (273-304); Potassium 3.4 MMOL/L (3.5-5.1); Sodium 148 MMOL/L (136-145)
[2020-12-06] MEDS: ALBUTEROL/IPRATROPIUM 3 ML NEB RESP TX SCH ×2 (07:55→20:16)
[2020-12-06] MEDS ORDERED: POTASSIUM CHLORIDE 20 MEQ PACK PO ONE (09:30)
[2020-12-06] MEDS: INSULIN LISPRO 100 UNIT/ML SUBCUT SCH ×4 (09:42→21:46)
[2020-12-06] MEDS: MENTHOL/ZINC OXIDE OINT 71 GM JAR TOP SCH ×2 (09:45→21:46)
[2020-12-06] MEDS: POLYETHYLENE GLYCOL POWDER 17 GM PACK PEG SCH (09:45)
[2020-12-06] MEDS: BACLOFEN 10 MG TABLET PEG SCH ×3 (09:46→21:45)
[2020-12-06] MEDS: levETIRAcetam LIQUID 100 MG/ML 30 ML/BOTTLE PEG SCH ×2 (09:46→21:46)
[2020-12-06] MEDS: POLYVINYL ALCOHOL 1.4% OPH SOLN 15 ML BOTTLE BOTH EYES SCH ×4 (09:46→21:45)
[2020-12-06] MEDS: METOPROLOL TARTRATE 25 MG TABLET PEG SCH ×3 (09:47→21:45)
[2020-12-06] MEDS: MEROPENEM 500 MG in SODIUM CHLORIDE 0.9% 100 ML IV SCH (09:47)
[2020-12-06] MEDS: OMEPRAZOLE ODT 20 MG TABLET PER TUBE SCH (09:47)
[2020-12-06] MEDS: LINEZOLID INJ 600 MG/300 ML PREMIX IV SCH (10:30)
[2020-12-06] MEDS ORDERED: SULFAMETHOX/TRIMETHOPRIM 800-160 MG TABLET PO SCH (12:00)
[2020-12-06] MEDS: LEVOFLOXACIN 500 MG TABLET PO SCH (12:30)
[2020-12-07] MEDS: HEPARIN 5,000 UNIT/1 ML VIAL SUBCUT SCH ×2 (06:01→17:32)
[2020-12-07] MEDS: SODIUM CHLORIDE 0.45% 1,000 ML IV SCH ×2 (06:01→17:33)
[2020-12-07] MEDS: ALBUTEROL/IPRATROPIUM 3 ML NEB RESP TX SCH ×2 (07:14→19:05)
[2020-12-07 07:15] LABS: Albumin 1.8 G/DL (3.4-5.0); Bilirubin,Total 0.4 MG/DL (0.20-1.00); Calcium 8.5 MG/DL (8.5-10.1); Osmolality,Calculated 289.3 MOS/KG (273-304); Potassium 3.5 MMOL/L (3.5-5.1); Total Protein 6.4 G/DL (6.4-8.2)
[2020-12-07 08:11] LABS: Basophils # 0.1 10*3/uL (0.0-0.2); Basophils % 0.5 % (0.0-0.8); Eosinophils # 0.7 10*3/uL (0.0-0.87); Eosinophils % 7.4 % (0.00-10.9); Hematocrit 27.5 VOL% (42.0-52.0); Hemoglobin 8.3 GM/DL (14.0-18.0); Immature Granulocytes % 2.1 %; Immature Granulocytes Absolute 0.19 #; Lymphocytes # 2.2 10*3/uL (1.4-4.0); Lymphocytes % 23.7 % (21.2-54.2); Mean Corpuscular HGB Conc 30.2 GM/DL (32-36); Mean Corpuscular Volume 90.2 FL (87-102); Mean Platelet Volume 10.7 FL (9.6-12.0); Monocytes % 7.6 % (1.7-12.7); NRBC # 0.06 10*3/uL; Neutrophils % 58.7 % (38.7-73.9); Platelet Count 413 T/CUMM (130-400); Red Blood Count 3.05 MC/CUMM (3.8-5.5); Red Cell Distribution Width 17.2 % (9.3-17.3); White Blood Count 9.2 T/CUMM (4-12)
[2020-12-07] MEDS: OMEPRAZOLE ODT 20 MG TABLET PER TUBE SCH (09:37)
[2020-12-07] MEDS: LEVOFLOXACIN 500 MG TABLET PO SCH (09:37)
[2020-12-07] MEDS: METOPROLOL TARTRATE 25 MG TABLET PEG SCH ×3 (09:37→22:11)
[2020-12-07] MEDS: BACLOFEN 10 MG TABLET PEG SCH ×3 (09:38→22:11)
[2020-12-07] MEDS: POLYVINYL ALCOHOL 1.4% OPH SOLN 15 ML BOTTLE BOTH EYES SCH ×4 (09:38→22:16)
[2020-12-07] MEDS: INSULIN LISPRO 100 UNIT/ML SUBCUT SCH ×4 (09:38→22:33)
[2020-12-07] MEDS: MENTHOL/ZINC OXIDE OINT 71 GM JAR TOP SCH ×2 (09:38→22:16)
[2020-12-07] MEDS: levETIRAcetam LIQUID 100 MG/ML 30 ML/BOTTLE PEG SCH ×2 (11:45→22:16)
[2020-12-08 05:21] LABS: Basophils % 0.4 % (0.0-0.8); Eosinophils # 0.5 10*3/uL (0.0-0.87); Eosinophils % 4.9 % (0.00-10.9); Hematocrit 26.9 VOL% (42.0-52.0); Hemoglobin 8.3 GM/DL (14.0-18.0); Immature Granulocytes % 2.8 %; Immature Granulocytes Absolute 0.27 #; Lymphocytes # 2.2 10*3/uL (1.4-4.0); Lymphocytes % 23.3 % (21.2-54.2); Mean Corpuscular HGB Conc 30.9 GM/DL (32-36); Mean Corpuscular Volume 88.2 FL (87-102); Mean Platelet Volume 9.8 FL (9.6-12.0); Monocytes % 8.2 % (1.7-12.7); NRBC # 0.03 10*3/uL; Neutrophils % 60.4 % (38.7-73.9); Platelet Count 376 T/CUMM (130-400); Red Blood Count 3.05 MC/CUMM (3.8-5.5); Red Cell Distribution Width 16.8 % (9.3-17.3); White Blood Count 9.5 T/CUMM (4-12)
[2020-12-08 05:50] LABS: Alanine Aminotransferase 44 U/L (16-61); Albumin 1.9 G/DL (3.4-5.0); Alkaline Phosphatase 157 U/L (45-117); Aspartate Amino Transferase 26 U/L (0-37); Bilirubin,Total < 0.39 MG/DL (0.20-1.00); Blood Urea Nitrogen 30 MG/DL (7-18); Calcium 8.5 MG/DL (8.5-10.1); Carbon Dioxide 23 MMOL/L (21-32); Estimated Glom Filtration Rate 66 ML/MIN; Glucose 99 MG/DL (74-106); Osmolality,Calculated 286.3 MOS/KG (273-304); Potassium 3.6 MMOL/L (3.5-5.1); Sodium 141 MMOL/L (136-145); Total Protein 6.7 G/DL (6.4-8.2)
[2020-12-08] MEDS: HEPARIN 5,000 UNIT/1 ML VIAL SUBCUT SCH ×2 (06:33→17:46)
[2020-12-08] MEDS: SODIUM CHLORIDE 0.45% 1,000 ML IV SCH (06:34)
[2020-12-08] MEDS: ALBUTEROL/IPRATROPIUM 3 ML NEB RESP TX SCH ×2 (06:59→20:14)
[2020-12-08] MEDS: INSULIN LISPRO 100 UNIT/ML SUBCUT SCH ×4 (08:29→22:21)
[2020-12-08] MEDS: POLYETHYLENE GLYCOL POWDER 17 GM PACK PEG SCH (10:38)
[2020-12-08] MEDS: BACLOFEN 10 MG TABLET PEG SCH ×3 (10:38→20:57)
[2020-12-08] MEDS: OMEPRAZOLE ODT 20 MG TABLET PER TUBE SCH (10:38)
[2020-12-08] MEDS: METOPROLOL TARTRATE 25 MG TABLET PEG SCH ×3 (10:38→20:57)
[2020-12-08] MEDS: levETIRAcetam LIQUID 100 MG/ML 30 ML/BOTTLE PEG SCH (10:38)
[2020-12-08] MEDS: LEVOFLOXACIN 500 MG TABLET PO SCH (10:38)
[2020-12-08] MEDS: POLYVINYL ALCOHOL 1.4% OPH SOLN 15 ML BOTTLE BOTH EYES SCH ×4 (10:38→21:52)
[2020-12-08] MEDS: MENTHOL/ZINC OXIDE OINT 71 GM JAR TOP SCH ×2 (10:39→21:52)
[2020-12-08] MEDS: fentaNYL 50 MCG/HR PATCH TRANSDERM SCH (14:34)
[2020-12-08] MEDS: MORPHINE 2 MG/1 ML SYRINGE IV PRN (21:52)
[2020-12-09] MEDS: HEPARIN 5,000 UNIT/1 ML VIAL SUBCUT SCH ×2 (05:15→17:25)
[2020-12-09] MEDS: levETIRAcetam LIQUID 100 MG/ML 30 ML/BOTTLE PEG SCH ×3 (05:23→22:19)
[2020-12-09] MEDS: MORPHINE 2 MG/1 ML SYRINGE IV PRN (05:59)
[2020-12-09 06:05] LABS: Basophils % 0.5 % (0.0-0.8); Eosinophils # 0.5 10*3/uL (0.0-0.87); Eosinophils % 5.7 % (0.00-10.9); Hematocrit 29.1 VOL% (42.0-52.0); Hemoglobin 9.2 GM/DL (14.0-18.0); Immature Granulocytes % 3.9 %; Immature Granulocytes Absolute 0.34 #; Lymphocytes # 2.3 10*3/uL (1.4-4.0); Lymphocytes % 26.5 % (21.2-54.2); Mean Corpuscular HGB Conc 31.6 GM/DL (32-36); Mean Corpuscular Volume 87.7 FL (87-102); Mean Platelet Volume 10.2 FL (9.6-12.0); Monocytes % 8.2 % (1.7-12.7); NRBC # 0.02 10*3/uL; Neutrophils % 55.2 % (38.7-73.9); Platelet Count 458 T/CUMM (130-400); Red Blood Count 3.32 MC/CUMM (3.8-5.5); Red Cell Distribution Width 17.4 % (9.3-17.3); White Blood Count 8.8 T/CUMM (4-12)
[2020-12-09 06:20] LABS: Alanine Aminotransferase 42 U/L (16-61); Alkaline Phosphatase 167 U/L (45-117); Aspartate Amino Transferase 23 U/L (0-37); Bilirubin,Total < 0.39 MG/DL (0.20-1.00); Blood Urea Nitrogen 26 MG/DL (7-18); Calcium 8.8 MG/DL (8.5-10.1); Carbon Dioxide 24 MMOL/L (21-32); Estimated Glom Filtration Rate 62 ML/MIN; Glucose 96 MG/DL (74-106); Osmolality,Calculated 283.4 MOS/KG (273-304); Potassium 3.4 MMOL/L (3.5-5.1); Sodium 140 MMOL/L (136-145); Total Protein 7.2 G/DL (6.4-8.2)
[2020-12-09] MEDS: ALBUTEROL/IPRATROPIUM 3 ML NEB RESP TX SCH ×2 (07:36→18:40)
[2020-12-09] MEDS: INSULIN LISPRO 100 UNIT/ML SUBCUT SCH ×4 (08:12→23:04)
[2020-12-09] MEDS: POLYVINYL ALCOHOL 1.4% OPH SOLN 15 ML BOTTLE BOTH EYES SCH ×4 (09:38→22:19)
[2020-12-09] MEDS: MENTHOL/ZINC OXIDE OINT 71 GM JAR TOP SCH ×2 (09:38→22:19)
[2020-12-09] MEDS: LEVOFLOXACIN 500 MG TABLET PO SCH (09:38)
[2020-12-09] MEDS: OMEPRAZOLE ODT 20 MG TABLET PER TUBE SCH (09:38)
[2020-12-09] MEDS: POTASSIUM BICARB EFFERVESCENT 20 MEQ TAB.EFF PER TUBE PRN ×2 (09:38→17:25)
[2020-12-09] MEDS: METOPROLOL TARTRATE 25 MG TABLET PEG SCH ×3 (09:38→22:22)
[2020-12-09] MEDS: BACLOFEN 10 MG TABLET PEG SCH ×3 (09:39→22:22)
[2020-12-09] MEDS: COLLAGENASE OINT 30 GM TUBE TOP SCH (13:52)
[2020-12-10 04:03] LABS: Basophils # 0.1 10*3/uL (0.0-0.2); Basophils % 0.5 % (0.0-0.8); Eosinophils # 0.6 10*3/uL (0.0-0.87); Eosinophils % 6.4 % (0.00-10.9); Hematocrit 27.2 VOL% (42.0-52.0); Hemoglobin 8.4 GM/DL (14.0-18.0); Immature Granulocytes % 3.1 %; Lymphocytes # 2.2 10*3/uL (1.4-4.0); Lymphocytes % 22.1 % (21.2-54.2); Mean Corpuscular HGB Conc 30.9 GM/DL (32-36); Mean Corpuscular Volume 88.9 FL (87-102); Mean Platelet Volume 9.9 FL (9.6-12.0); Monocytes % 10.5 % (1.7-12.7); NRBC # 0.03 10*3/uL; Neutrophils % 57.4 % (38.7-73.9); Platelet Count 475 T/CUMM (130-400); Red Blood Count 3.06 MC/CUMM (3.8-5.5); Red Cell Distribution Width 17.4 % (9.3-17.3); White Blood Count 9.8 T/CUMM (4-12)
[2020-12-10 04:42] LABS: Calcium 8.7 MG/DL (8.5-10.1); Potassium 3.8 MMOL/L (3.5-5.1); Total Protein 7.1 G/DL (6.4-8.2)
[2020-12-10] MEDS: HEPARIN 5,000 UNIT/1 ML VIAL SUBCUT SCH ×2 (06:24→17:22)
[2020-12-10] MEDS: POTASSIUM BICARB EFFERVESCENT 20 MEQ TAB.EFF PER TUBE PRN (06:25)
[2020-12-10] MEDS: INSULIN LISPRO 100 UNIT/ML SUBCUT SCH ×4 (07:28→22:45)
[2020-12-10] MEDS: ALBUTEROL/IPRATROPIUM 3 ML NEB RESP TX SCH ×2 (07:28→20:13)
[2020-12-10] MEDS: BACLOFEN 10 MG TABLET PEG SCH ×3 (09:05→20:57)
[2020-12-10] MEDS: OMEPRAZOLE ODT 20 MG TABLET PER TUBE SCH (09:05)
[2020-12-10] MEDS: LEVOFLOXACIN 500 MG TABLET PO SCH (09:05)
[2020-12-10] MEDS: METOPROLOL TARTRATE 50 MG TABLET PEG SCH ×2 (09:05→20:57)
[2020-12-10] MEDS: COLLAGENASE OINT 30 GM TUBE TOP SCH (09:06)
[2020-12-10] MEDS: MENTHOL/ZINC OXIDE OINT 71 GM JAR TOP SCH ×2 (09:06→20:58)
[2020-12-10] MEDS: POLYETHYLENE GLYCOL POWDER 17 GM PACK PEG SCH (09:06)
[2020-12-10] MEDS: POLYVINYL ALCOHOL 1.4% OPH SOLN 15 ML BOTTLE BOTH EYES SCH ×4 (09:06→20:57)
[2020-12-10] MEDS: levETIRAcetam LIQUID 100 MG/ML 30 ML/BOTTLE PEG SCH ×2 (09:56→20:42)
[2020-12-11] MEDS ORDERED: LORazepam 2 MG/1 ML VIAL IV ONE (04:25)
[2020-12-11 04:26] LABS: Basophils # 0.1 10*3/uL (0.0-0.2); Basophils % 0.7 % (0.0-0.8); Eosinophils # 0.5 10*3/uL (0.0-0.87); Eosinophils % 5.5 % (0.00-10.9); Hematocrit 28.1 VOL% (42.0-52.0); Hemoglobin 8.5 GM/DL (14.0-18.0); Immature Granulocytes Absolute 0.17 #; Lymphocytes # 2.1 10*3/uL (1.4-4.0); Lymphocytes % 23.9 % (21.2-54.2); Mean Corpuscular HGB Conc 30.2 GM/DL (32-36); Mean Corpuscular Volume 89.8 FL (87-102); Mean Platelet Volume 9.8 FL (9.6-12.0); Monocytes % 10.8 % (1.7-12.7); Neutrophils % 57.1 % (38.7-73.9); Platelet Count 492 T/CUMM (130-400); Red Blood Count 3.13 MC/CUMM (3.8-5.5); Red Cell Distribution Width 17.9 % (9.3-17.3); White Blood Count 8.7 T/CUMM (4-12)
[2020-12-11 04:50] LABS: Albumin 2.1 G/DL (3.4-5.0); Bilirubin,Total 0.9 MG/DL (0.20-1.00); Osmolality,Calculated 289.8 MOS/KG (273-304); Potassium 4.1 MMOL/L (3.5-5.1); Total Protein 7.3 G/DL (6.4-8.2)
[2020-12-11] MEDS: HEPARIN 5,000 UNIT/1 ML VIAL SUBCUT SCH ×2 (05:42→17:52)
[2020-12-11] MEDS: ALBUTEROL/IPRATROPIUM 3 ML NEB RESP TX SCH ×2 (07:03→19:33)
[2020-12-11] MEDS: INSULIN LISPRO 100 UNIT/ML SUBCUT SCH ×4 (09:10→21:03)
[2020-12-11] MEDS: MENTHOL/ZINC OXIDE OINT 71 GM JAR TOP SCH ×2 (10:01→20:29)
[2020-12-11] MEDS: LEVOFLOXACIN 500 MG TABLET PO SCH (10:01)
[2020-12-11] MEDS: OMEPRAZOLE ODT 20 MG TABLET PER TUBE SCH (10:01)
[2020-12-11] MEDS: levETIRAcetam LIQUID 100 MG/ML 30 ML/BOTTLE PEG SCH ×2 (10:01→20:30)
[2020-12-11] MEDS: POLYVINYL ALCOHOL 1.4% OPH SOLN 15 ML BOTTLE BOTH EYES SCH ×4 (10:01→20:30)
[2020-12-11] MEDS: COLLAGENASE OINT 30 GM TUBE TOP SCH (10:01)
[2020-12-11] MEDS: METOPROLOL TARTRATE 50 MG TABLET PEG SCH ×2 (10:01→20:26)
[2020-12-11] MEDS: BACLOFEN 10 MG TABLET PEG SCH ×3 (10:01→20:26)
[2020-12-11] MEDS: fentaNYL 50 MCG/HR PATCH TRANSDERM SCH (14:05)
[2020-12-12 05:34] LABS: Basophils # 0.1 10*3/uL (0.0-0.2); Basophils % 0.6 % (0.0-0.8); Eosinophils # 0.4 10*3/uL (0.0-0.87); Eosinophils % 4.7 % (0.00-10.9); Hematocrit 26.6 VOL% (42.0-52.0); Hemoglobin 8.4 GM/DL (14.0-18.0); Immature Granulocytes % 1.3 %; Immature Granulocytes Absolute 0.11 #; Lymphocytes # 2.6 10*3/uL (1.4-4.0); Lymphocytes % 30.8 % (21.2-54.2); Mean Corpuscular HGB Conc 31.6 GM/DL (32-36); Mean Corpuscular Volume 88.1 FL (87-102); Mean Platelet Volume 9.8 FL (9.6-12.0); Monocytes % 8.9 % (1.7-12.7); Neutrophils % 53.7 % (38.7-73.9); Platelet Count 484 T/CUMM (130-400); Red Blood Count 3.02 MC/CUMM (3.8-5.5); Red Cell Distribution Width 18.2 % (9.3-17.3); White Blood Count 8.3 T/CUMM (4-12)
[2020-12-12] MEDS: HEPARIN 5,000 UNIT/1 ML VIAL SUBCUT SCH ×2 (06:00→17:00)
[2020-12-12] MEDS: ALBUTEROL/IPRATROPIUM 3 ML NEB RESP TX SCH ×2 (07:15→19:35)
[2020-12-12] MEDS ORDERED: LACTATED RINGERS 500 ML IV ONE (07:59)
[2020-12-12] MEDS: BACLOFEN 10 MG TABLET PEG SCH ×3 (09:01→21:48)
[2020-12-12] MEDS: POLYVINYL ALCOHOL 1.4% OPH SOLN 15 ML BOTTLE BOTH EYES SCH ×4 (09:01→21:47)
[2020-12-12] MEDS: METOPROLOL TARTRATE 50 MG TABLET PEG SCH ×2 (09:01→21:48)
[2020-12-12] MEDS: LEVOFLOXACIN 500 MG TABLET PO SCH (09:02)
[2020-12-12] MEDS: levETIRAcetam LIQUID 100 MG/ML 30 ML/BOTTLE PEG SCH ×2 (09:02→21:47)
[2020-12-12] MEDS: OMEPRAZOLE ODT 20 MG TABLET PER TUBE SCH (09:02)
[2020-12-12] MEDS: MENTHOL/ZINC OXIDE OINT 71 GM JAR TOP SCH ×2 (09:02→21:47)
[2020-12-12] MEDS: COLLAGENASE OINT 30 GM TUBE TOP SCH (09:03)
[2020-12-12] MEDS: INSULIN LISPRO 100 UNIT/ML SUBCUT SCH ×4 (09:41→21:48)
[2020-12-12 09:57] LABS: Calcium 8.8 MG/DL (8.5-10.1); Osmolality,Calculated 282.4 MOS/KG (273-304); Potassium 3.9 MMOL/L (3.5-5.1)
[2020-12-13 05:20] LABS: Basophils % 0.3 % (0.0-0.8); Eosinophils # 0.3 10*3/uL (0.0-0.87); Eosinophils % 3.2 % (0.00-10.9); Hematocrit 28.6 VOL% (42.0-52.0); Hemoglobin 8.7 GM/DL (14.0-18.0); Lymphocytes # 2.1 10*3/uL (1.4-4.0); Lymphocytes % 21.3 % (21.2-54.2); Mean Corpuscular HGB Conc 30.4 GM/DL (32-36); Mean Corpuscular Volume 89.1 FL (87-102); Mean Platelet Volume 9.6 FL (9.6-12.0); Monocytes % 8.1 % (1.7-12.7); NRBC # 0.02 10*3/uL; Neutrophils % 66.1 % (38.7-73.9); Platelet Count 486 T/CUMM (130-400); Red Blood Count 3.21 MC/CUMM (3.8-5.5); Red Cell Distribution Width 18.1 % (9.3-17.3); White Blood Count 9.7 T/CUMM (4-12)
[2020-12-13] MEDS: HEPARIN 5,000 UNIT/1 ML VIAL SUBCUT SCH ×2 (05:44→17:05)
[2020-12-13 05:45] LABS: Calcium 8.9 MG/DL (8.5-10.1); Osmolality,Calculated 281.5 MOS/KG (273-304); Potassium 4.2 MMOL/L (3.5-5.1)
[2020-12-13] MEDS: ALBUTEROL/IPRATROPIUM 3 ML NEB RESP TX SCH ×2 (07:59→19:39)
[2020-12-13] MEDS: METOPROLOL TARTRATE 50 MG TABLET PEG SCH ×2 (09:21→21:56)
[2020-12-13] MEDS: BACLOFEN 10 MG TABLET PEG SCH ×3 (09:21→21:55)
[2020-12-13] MEDS: LEVOFLOXACIN 500 MG TABLET PO SCH (09:21)
[2020-12-13] MEDS: OMEPRAZOLE ODT 20 MG TABLET PER TUBE SCH (09:21)
[2020-12-13] MEDS: MENTHOL/ZINC OXIDE OINT 71 GM JAR TOP SCH ×2 (09:21→21:55)
[2020-12-13] MEDS: POLYETHYLENE GLYCOL POWDER 17 GM PACK PEG SCH (09:22)
[2020-12-13] MEDS: POLYVINYL ALCOHOL 1.4% OPH SOLN 15 ML BOTTLE BOTH EYES SCH ×4 (09:22→21:55)
[2020-12-13] MEDS: COLLAGENASE OINT 30 GM TUBE TOP SCH (09:23)
[2020-12-13] MEDS: INSULIN LISPRO 100 UNIT/ML SUBCUT SCH ×4 (09:23→21:56)
[2020-12-13] MEDS: levETIRAcetam LIQUID 100 MG/ML 30 ML/BOTTLE PEG SCH ×2 (09:23→21:54)
[2020-12-14] MEDS: HEPARIN 5,000 UNIT/1 ML VIAL SUBCUT SCH (05:20)
[2020-12-14] MEDS: ALBUTEROL/IPRATROPIUM 3 ML NEB RESP TX SCH (07:20)
[2020-12-14] MEDS: LEVOFLOXACIN 500 MG TABLET PO SCH (08:42)
[2020-12-14] MEDS: BACLOFEN 10 MG TABLET PEG SCH ×2 (08:42→14:08)
[2020-12-14] MEDS: OMEPRAZOLE ODT 20 MG TABLET PER TUBE SCH (08:42)
[2020-12-14] MEDS: POLYVINYL ALCOHOL 1.4% OPH SOLN 15 ML BOTTLE BOTH EYES SCH ×2 (08:42→14:08)
[2020-12-14] MEDS: METOPROLOL TARTRATE 50 MG TABLET PEG SCH (08:42)
[2020-12-14] MEDS: COLLAGENASE OINT 30 GM TUBE TOP SCH (08:43)
[2020-12-14] MEDS: MENTHOL/ZINC OXIDE OINT 71 GM JAR TOP SCH (08:43)
[2020-12-14] MEDS: levETIRAcetam LIQUID 100 MG/ML 30 ML/BOTTLE PEG SCH (08:43)
[2020-12-14] MEDS: INSULIN LISPRO 100 UNIT/ML SUBCUT SCH ×2 (08:44→11:00)
[2020-12-14 11:02] VITALS: BP 130/84
== END 2020-12-14 14:55 | DRG 698 ==
LOC: N.ED 11:48 → SUATTDRO 14:02 → N.EDINP 14:02 → N.3E 17:41
PROVIDERS: ADMIT Internal Medicine; ATTEND Hospitalist

== ENCOUNTER 2020-12-26 16:31 | Inpatient (IN) ==
[2020-12-26] MEDS ORDERED: SODIUM CHLORIDE 0.9% 1,000 ML IV STA (17:24)
[2020-12-26 18:55] LABS: Basophils # 0.1 10*3/uL (0.0-0.2); Basophils % 0.4 % (0.0-0.8); Eosinophils # 0.8 10*3/uL (0.0-0.87); Eosinophils % 4.9 % (0.00-10.9); Hematocrit 30.6 VOL% (42.0-52.0); Hemoglobin 9.6 GM/DL (14.0-18.0); Immature Granulocytes % 0.8 %; Immature Granulocytes Absolute 0.14 #; Lymphocytes # 2.5 10*3/uL (1.4-4.0); Lymphocytes % 15.3 % (21.2-54.2); Mean Corpuscular HGB Conc 31.4 GM/DL (32-36); Mean Corpuscular Volume 88.2 FL (87-102); Mean Platelet Volume 9.8 FL (9.6-12.0); Monocytes % 7.4 % (1.7-12.7); Neutrophils % 71.2 % (38.7-73.9); Platelet Count 456 T/CUMM (130-400); Red Blood Count 3.47 MC/CUMM (3.8-5.5); Red Cell Distribution Width 18.7 % (9.3-17.3); White Blood Count 16.6 T/CUMM (4-12)
[2020-12-26 19:11] LABS: Alanine Aminotransferase 35 U/L (16-61); Albumin 2.7 G/DL (3.4-5.0); Alkaline Phosphatase 165 U/L (45-117); Aspartate Amino Transferase 19 U/L (0-37); Bilirubin,Total < 0.39 MG/DL (0.20-1.00); Blood Urea Nitrogen 49 MG/DL (7-18); Calcium 9.2 MG/DL (8.5-10.1); Carbon Dioxide 29 MMOL/L (21-32); Glucose 102 MG/DL (74-106); Osmolality,Calculated 291.4 MOS/KG (273-304); Potassium 3.7 MMOL/L (3.5-5.1); Sodium 140 MMOL/L (136-145); Total Protein 8.9 G/DL (6.4-8.2)
[2020-12-26 19:15] LABS: Estimated Glom Filtration Rate 0 ML/MIN
[2020-12-26 19:31] LABS: Bacteria,Urine Occasional /HPF (Few); Bilirubin,Urine Negative (Negative); Blood, Urine Negative (Negative); Glucose,Urine (UA) Negative (Negative); Ketones,Urine Negative (Negative); Nitrite,Urine Negative (Negative); Protein,Urine >=500 MG/DL; RBC,Urine 3 /HPF (0-4); Urine Appearance Slightly Hazy (Clear); Urine Color Yellow (Yellow); Urine Specific Gravity 1.017 (1.001-1.035); Urine Urobilinogen < 2.0 EU/DL (0.2-1.0)
[2020-12-26] MEDS ORDERED: PIPERACILLIN/TAZOBACTAM 3,375 MG in SODIUM CHLORIDE 0.9% 100 ML IV STA (19:44)
[2020-12-26] MEDS ORDERED: GLUCAGON 1 MG VIAL IM PRN (20:08)
[2020-12-26] MEDS ORDERED: DEXTROSE 50% 25 GM/50 ML VIAL IV PRN (20:08)
[2020-12-26] MEDS ORDERED: ONDANSETRON 4 MG/2 ML VIAL IV PRN (20:10)
[2020-12-26] MEDS ORDERED: hydrALAZINE 20 MG/1 ML VIAL IV PRN (20:10)
[2020-12-26] MEDS ORDERED: VANCOMYCIN INJ 1,000 MG in SODIUM CHLORIDE 0.9% 250 ML IV STA (21:02)
[2020-12-26] MEDS: HEPARIN 5,000 UNIT/1 ML VIAL SUBCUT SCH (21:10)
[2020-12-26] MEDS ORDERED: DOCUSATE SODIUM 100 MG/10 ML UDCUP PO PRN (22:33)
[2020-12-26] MEDS ORDERED: ALBUTEROL/IPRATROPIUM 3 ML NEB RESP TX SCH (23:00)
[2020-12-26] MEDS: LACTATED RINGERS 1,000 ML IV SCH (23:51)
[2020-12-26] MEDS: METOPROLOL TARTRATE 50 MG TABLET PEG SCH (23:51)
[2020-12-26] MEDS: PIPERACILLIN/TAZOBACTAM 3,375 MG in SODIUM CHLORIDE 0.9% 100 ML IV SCH (23:51)
[2020-12-26] MEDS: fentaNYL 50 MCG/HR PATCH TRANSDERM SCH (23:53)
[2020-12-27] MEDS: INSULIN REGULAR 100 UNIT/ML SUBCUT SCH ×4 (01:08→17:20)
[2020-12-27] MEDS: HEPARIN 5,000 UNIT/1 ML VIAL SUBCUT SCH ×3 (06:02→21:43)
[2020-12-27] MEDS: PIPERACILLIN/TAZOBACTAM 3,375 MG in SODIUM CHLORIDE 0.9% 100 ML IV SCH ×2 (06:03→17:10)
[2020-12-27 06:20] LABS: Basophils # 0.1 10*3/uL (0.0-0.2); Basophils % 0.6 % (0.0-0.8); Eosinophils # 1.1 10*3/uL (0.0-0.87); Eosinophils % 8.1 % (0.00-10.9); Hemoglobin 9.1 GM/DL (14.0-18.0); Immature Granulocytes % 0.8 %; Lymphocytes # 2.2 10*3/uL (1.4-4.0); Lymphocytes % 16.9 % (21.2-54.2); Mean Corpuscular HGB Conc 31.4 GM/DL (32-36); Mean Corpuscular Volume 88.4 FL (87-102); Mean Platelet Volume 11.6 FL (9.6-12.0); Monocytes % 11.1 % (1.7-12.7); Neutrophils % 62.5 % (38.7-73.9); Platelet Count 433 T/CUMM (130-400); Red Blood Count 3.28 MC/CUMM (3.8-5.5); Red Cell Distribution Width 19.5 % (9.3-17.3); White Blood Count 13.2 T/CUMM (4-12)
[2020-12-27] MEDS: ALBUTEROL/IPRATROPIUM 3 ML NEB RESP TX SCH ×2 (07:37→19:45)
[2020-12-27] MEDS ORDERED: levETIRAcetam 500 MG TABLET PO SCH (08:00)
[2020-12-27] MEDS: METOPROLOL TARTRATE 50 MG TABLET PEG SCH ×2 (08:33→21:43)
[2020-12-27] MEDS: POLYETHYLENE GLYCOL POWDER 17 GM PACK PEG SCH (08:33)
[2020-12-27] MEDS: POLYVINYL ALCOHOL 1.4% OPH SOLN 15 ML BOTTLE BOTH EYES SCH ×4 (08:33→21:43)
[2020-12-27] MEDS: BACLOFEN 10 MG TABLET PEG SCH ×3 (08:33→21:43)
[2020-12-27] MEDS ORDERED: PANTOPRAZOLE 40 MG VIAL IV SCH (09:00)
[2020-12-27] MEDS: MENTHOL/ZINC OXIDE OINT 71 GM JAR TOP SCH ×2 (09:30→21:43)
[2020-12-27 09:57] LABS: Calcium 8.8 MG/DL (8.5-10.1); Osmolality,Calculated 292.1 MOS/KG (273-304); Potassium 3.8 MMOL/L (3.5-5.1)
[2020-12-27 10:32] LABS: Alanine Aminotransferase 25 U/L (16-61); Albumin 2.4 G/DL (3.4-5.0); Alkaline Phosphatase 149 U/L (45-117); Aspartate Amino Transferase 18 U/L (0-37); Bilirubin,Total < 0.39 MG/DL (0.20-1.00); Blood Urea Nitrogen 42 MG/DL (7-18); Calcium 9.2 MG/DL (8.5-10.1); Carbon Dioxide 28 MMOL/L (21-32); Estimated Glom Filtration Rate 42 ML/MIN; Glucose 89 MG/DL (74-106); Potassium 3.8 MMOL/L (3.5-5.1); Sodium 143 MMOL/L (136-145); Total Protein 7.9 G/DL (6.4-8.2)
[2020-12-27] MEDS: OSELTAMIVIR 6 MG/ML 60 ML/BOTTLE PEG SCH ×2 (11:49→21:44)
[2020-12-27] MEDS: LACTATED RINGERS 1,000 ML IV SCH ×2 (14:50→16:21)
[2020-12-27] MEDS: SODIUM HYPOCHLORITE 0.25% IRRIG 473 ML BOTTLE TOP SCH (15:40)
[2020-12-27] MEDS: levETIRAcetam LIQUID 100 MG/ML 30 ML/BOTTLE PEG SCH (21:43)
[2020-12-27] MEDS: SERTRALINE 25 MG TABLET PEG SCH (21:43)
[2020-12-28] MEDS: PIPERACILLIN/TAZOBACTAM 3,375 MG in SODIUM CHLORIDE 0.9% 100 ML IV SCH ×3 (00:01→18:19)
[2020-12-28] MEDS: INSULIN REGULAR 100 UNIT/ML SUBCUT SCH ×4 (00:11→18:30)
[2020-12-28] MEDS: LACTATED RINGERS 1,000 ML IV SCH ×2 (02:07→18:25)
[2020-12-28 05:26] LABS: Basophils # 0.1 10*3/uL (0.0-0.2); Basophils % 0.4 % (0.0-0.8); Eosinophils # 0.8 10*3/uL (0.0-0.87); Eosinophils % 6.7 % (0.00-10.9); Hematocrit 28.9 VOL% (42.0-52.0); Hemoglobin 8.7 GM/DL (14.0-18.0); Immature Granulocytes % 0.6 %; Immature Granulocytes Absolute 0.07 #; Lymphocytes # 1.3 10*3/uL (1.4-4.0); Lymphocytes % 11.5 % (21.2-54.2); Mean Corpuscular HGB Conc 30.1 GM/DL (32-36); Mean Corpuscular Volume 89.5 FL (87-102); Mean Platelet Volume 9.8 FL (9.6-12.0); Monocytes % 7.5 % (1.7-12.7); Neutrophils % 73.3 % (38.7-73.9); Platelet Count 395 T/CUMM (130-400); Red Blood Count 3.23 MC/CUMM (3.8-5.5); Red Cell Distribution Width 18.5 % (9.3-17.3); White Blood Count 11.4 T/CUMM (4-12)
[2020-12-28 05:39] LABS: Calcium 8.8 MG/DL (8.5-10.1); Osmolality,Calculated 295.6 MOS/KG (273-304); Potassium 3.7 MMOL/L (3.5-5.1)
[2020-12-28] MEDS: HEPARIN 5,000 UNIT/1 ML VIAL SUBCUT SCH (06:09)
[2020-12-28 06:10] LABS: Albumin 2.5 G/DL (3.4-5.0); Bilirubin,Total 0.4 MG/DL (0.20-1.00); Calcium 8.9 MG/DL (8.5-10.1); Osmolality,Calculated 296.6 MOS/KG (273-304); Potassium 3.7 MMOL/L (3.5-5.1); Total Protein 7.9 G/DL (6.4-8.2)
[2020-12-28] MEDS ORDERED: LIDOCAINE 1%/EPI INJ 20 ML VIAL ONE (08:36)
[2020-12-28] MEDS: ALBUTEROL/IPRATROPIUM 3 ML NEB RESP TX SCH ×2 (08:53→19:56)
[2020-12-28] MEDS ORDERED: OMEPRAZOLE ODT 20 MG TABLET PEG SCH (09:00)
[2020-12-28] MEDS: BACLOFEN 10 MG TABLET PEG SCH ×3 (11:02→21:25)
[2020-12-28] MEDS: METOPROLOL TARTRATE 50 MG TABLET PEG SCH ×2 (11:02→21:25)
[2020-12-28] MEDS: MENTHOL/ZINC OXIDE OINT 71 GM JAR TOP SCH ×2 (11:03→21:27)
[2020-12-28] MEDS: SODIUM HYPOCHLORITE 0.25% IRRIG 473 ML BOTTLE TOP SCH (11:15)
[2020-12-28] MEDS: OSELTAMIVIR 6 MG/ML 60 ML/BOTTLE PEG SCH ×2 (11:18→21:25)
[2020-12-28] MEDS: levETIRAcetam LIQUID 100 MG/ML 30 ML/BOTTLE PEG SCH ×2 (11:19→21:26)
[2020-12-28] MEDS: POLYVINYL ALCOHOL 1.4% OPH SOLN 15 ML BOTTLE BOTH EYES SCH ×4 (11:19→21:27)
[2020-12-28] MEDS: OMEPRAZOLE ODT 20 MG TABLET PEG SCH (13:26)
[2020-12-28] MEDS: LORazepam 2 MG/1 ML VIAL IV SCH ×2 (13:27→18:24)
[2020-12-28] MEDS: SERTRALINE 25 MG TABLET PEG SCH (21:25)
[2020-12-29] MEDS: LACTATED RINGERS 1,000 ML IV SCH ×4 (00:42→22:32)
[2020-12-29] MEDS: LORazepam 2 MG/1 ML VIAL IV SCH ×2 (01:27→06:21)
[2020-12-29] MEDS: PIPERACILLIN/TAZOBACTAM 3,375 MG in SODIUM CHLORIDE 0.9% 100 ML IV SCH ×3 (01:30→18:28)
[2020-12-29] MEDS: INSULIN REGULAR 100 UNIT/ML SUBCUT SCH ×4 (01:30→18:33)
[2020-12-29] MEDS: ALBUTEROL/IPRATROPIUM 3 ML NEB RESP TX SCH ×2 (07:05→20:30)
[2020-12-29 07:56] LABS: Basophils % 0.3 % (0.0-0.8); Eosinophils # 0.8 10*3/uL (0.0-0.87); Eosinophils % 10.5 % (0.00-10.9); Immature Granulocytes % 0.8 %; Immature Granulocytes Absolute 0.06 #; Lymphocytes # 1.8 10*3/uL (1.4-4.0); Mean Corpuscular HGB Conc 30.8 GM/DL (32-36); Mean Platelet Volume 9.4 FL (9.6-12.0); Monocytes % 12.6 % (1.7-12.7); Neutrophils % 52.8 % (38.7-73.9); Platelet Count 362 T/CUMM (130-400); Red Blood Count 2.92 MC/CUMM (3.8-5.5); Red Cell Distribution Width 18.4 % (9.3-17.3); White Blood Count 7.8 T/CUMM (4-12)
[2020-12-29 08:21] LABS: Calcium 8.6 MG/DL (8.5-10.1); Osmolality,Calculated 291.7 MOS/KG (273-304); Potassium 3.6 MMOL/L (3.5-5.1)
[2020-12-29] MEDS: OSELTAMIVIR 6 MG/ML 60 ML/BOTTLE PEG SCH ×2 (09:19→21:14)
[2020-12-29] MEDS: POLYVINYL ALCOHOL 1.4% OPH SOLN 15 ML BOTTLE BOTH EYES SCH ×4 (09:19→21:16)
[2020-12-29] MEDS: levETIRAcetam LIQUID 100 MG/ML 30 ML/BOTTLE PEG SCH ×2 (09:20→21:15)
[2020-12-29] MEDS: POLYETHYLENE GLYCOL POWDER 17 GM PACK PEG SCH (09:21)
[2020-12-29] MEDS: METOPROLOL TARTRATE 50 MG TABLET PEG SCH ×2 (09:22→21:13)
[2020-12-29] MEDS: BACLOFEN 10 MG TABLET PEG SCH ×3 (09:23→21:25)
[2020-12-29] MEDS: OMEPRAZOLE ODT 20 MG TABLET PEG SCH (09:23)
[2020-12-29] MEDS ORDERED: LORazepam 2 MG/1 ML VIAL IV PRN (10:30)
[2020-12-29] MEDS: SODIUM HYPOCHLORITE 0.25% IRRIG 473 ML BOTTLE TOP SCH (11:09)
[2020-12-29] MEDS: MENTHOL/ZINC OXIDE OINT 71 GM JAR TOP SCH ×2 (11:09→21:15)
[2020-12-29] MEDS: FLUCONAZOLE 40 MG/ML 35 ML/BOTTLE PEG SCH (14:17)
[2020-12-29] MEDS: SERTRALINE 25 MG TABLET PEG SCH (21:13)
[2020-12-29] MEDS: TOBRAMYCIN INJ 320 MG in SODIUM CHLORIDE 0.9% 100 ML IV SCH (21:14)
[2020-12-29] MEDS: fentaNYL 50 MCG/HR PATCH TRANSDERM SCH (23:23)
[2020-12-30] MEDS: INSULIN REGULAR 100 UNIT/ML SUBCUT SCH ×4 (00:42→19:27)
[2020-12-30 06:35] LABS: Basophils % 0.4 % (0.0-0.8); Eosinophils # 0.7 10*3/uL (0.0-0.87); Eosinophils % 8.6 % (0.00-10.9); Hematocrit 27.3 VOL% (42.0-52.0); Hemoglobin 8.2 GM/DL (14.0-18.0); Immature Granulocytes % 0.9 %; Immature Granulocytes Absolute 0.07 #; Lymphocytes % 24.5 % (21.2-54.2); Mean Corpuscular Volume 90.4 FL (87-102); Mean Platelet Volume 9.8 FL (9.6-12.0); Monocytes % 10.7 % (1.7-12.7); NRBC # 0.02 10*3/uL; Neutrophils % 54.9 % (38.7-73.9); Platelet Count 387 T/CUMM (130-400); Red Blood Count 3.02 MC/CUMM (3.8-5.5); Red Cell Distribution Width 18.4 % (9.3-17.3); White Blood Count 8.2 T/CUMM (4-12)
[2020-12-30 07:02] LABS: Calcium 8.7 MG/DL (8.5-10.1); Osmolality,Calculated 292.6 MOS/KG (273-304); Potassium 3.7 MMOL/L (3.5-5.1)
[2020-12-30] MEDS: ALBUTEROL/IPRATROPIUM 3 ML NEB RESP TX SCH ×2 (07:30→19:11)
[2020-12-30] MEDS: METOPROLOL TARTRATE 50 MG TABLET PEG SCH ×2 (09:21→20:45)
[2020-12-30] MEDS: OMEPRAZOLE ODT 20 MG TABLET PEG SCH (09:22)
[2020-12-30] MEDS: levETIRAcetam LIQUID 100 MG/ML 30 ML/BOTTLE PEG SCH ×2 (09:23→20:47)
[2020-12-30] MEDS: OSELTAMIVIR 6 MG/ML 60 ML/BOTTLE PEG SCH ×2 (09:23→20:47)
[2020-12-30] MEDS: FLUCONAZOLE 40 MG/ML 35 ML/BOTTLE PEG SCH (09:23)
[2020-12-30] MEDS: BACLOFEN 10 MG TABLET PEG SCH ×3 (09:24→20:45)
[2020-12-30] MEDS: SODIUM HYPOCHLORITE 0.25% IRRIG 473 ML BOTTLE TOP SCH (09:24)
[2020-12-30] MEDS: POLYVINYL ALCOHOL 1.4% OPH SOLN 15 ML BOTTLE BOTH EYES SCH ×4 (09:24→20:47)
[2020-12-30] MEDS: MENTHOL/ZINC OXIDE OINT 71 GM JAR TOP SCH ×2 (09:24→20:46)
[2020-12-30] MEDS: MEROPENEM 500 MG in SODIUM CHLORIDE 0.9% 100 ML IV SCH ×3 (11:40→21:58)
[2020-12-30] MEDS: SERTRALINE 25 MG TABLET PEG SCH (20:45)
[2020-12-31] MEDS: MEROPENEM 500 MG in SODIUM CHLORIDE 0.9% 100 ML IV SCH ×4 (04:05→23:46)
[2020-12-31] MEDS: ACETAMINOPHEN 325 MG TABLET PO PRN (04:45)
[2020-12-31 05:10] LABS: Basophils % 0.3 % (0.0-0.8); Eosinophils # 0.7 10*3/uL (0.0-0.87); Eosinophils % 8.3 % (0.00-10.9); Hematocrit 25.6 VOL% (42.0-52.0); Hemoglobin 7.9 GM/DL (14.0-18.0); Immature Granulocytes % 1.4 %; Immature Granulocytes Absolute 0.12 #; Lymphocytes # 2.1 10*3/uL (1.4-4.0); Lymphocytes % 23.7 % (21.2-54.2); Mean Corpuscular HGB Conc 30.9 GM/DL (32-36); Mean Corpuscular Volume 89.8 FL (87-102); Mean Platelet Volume 10.2 FL (9.6-12.0); Monocytes % 8.5 % (1.7-12.7); Neutrophils % 57.8 % (38.7-73.9); Platelet Count 364 T/CUMM (130-400); Red Blood Count 2.85 MC/CUMM (3.8-5.5); Red Cell Distribution Width 18.5 % (9.3-17.3); White Blood Count 8.7 T/CUMM (4-12)
[2020-12-31 05:36] LABS: Calcium 8.5 MG/DL (8.5-10.1); Osmolality,Calculated 288.7 MOS/KG (273-304); Potassium 3.8 MMOL/L (3.5-5.1)
[2020-12-31] MEDS: INSULIN REGULAR 100 UNIT/ML SUBCUT SCH ×5 (06:11→23:47)
[2020-12-31] MEDS: ALBUTEROL/IPRATROPIUM 3 ML NEB RESP TX SCH ×2 (07:29→20:22)
[2020-12-31] MEDS: OMEPRAZOLE ODT 20 MG TABLET PEG SCH (09:57)
[2020-12-31] MEDS: METOPROLOL TARTRATE 50 MG TABLET PEG SCH ×2 (09:57→23:44)
[2020-12-31] MEDS: POLYETHYLENE GLYCOL POWDER 17 GM PACK PEG SCH (09:58)
[2020-12-31] MEDS: MENTHOL/ZINC OXIDE OINT 71 GM JAR TOP SCH ×2 (09:58→23:39)
[2020-12-31] MEDS: BACLOFEN 10 MG TABLET PEG SCH ×3 (09:58→23:46)
[2020-12-31] MEDS: SODIUM HYPOCHLORITE 0.25% IRRIG 473 ML BOTTLE TOP SCH (09:59)
[2020-12-31] MEDS: POLYVINYL ALCOHOL 1.4% OPH SOLN 15 ML BOTTLE BOTH EYES SCH ×4 (10:04→23:43)
[2020-12-31] MEDS: FLUCONAZOLE 40 MG/ML 35 ML/BOTTLE PEG SCH (10:04)
[2020-12-31] MEDS: TOBRAMYCIN INJ 320 MG in SODIUM CHLORIDE 0.9% 100 ML IV SCH (10:06)
[2020-12-31] MEDS: OSELTAMIVIR 6 MG/ML 60 ML/BOTTLE PEG SCH (10:10)
[2020-12-31] MEDS: levETIRAcetam LIQUID 100 MG/ML 30 ML/BOTTLE PEG SCH ×2 (11:56→23:44)
[2020-12-31] MEDS: SERTRALINE 25 MG TABLET PEG SCH (23:44)
[2021-01-01] MEDS: OSELTAMIVIR 6 MG/ML 60 ML/BOTTLE PEG SCH (01:20)
[2021-01-01] MEDS: ACETAMINOPHEN 325 MG TABLET PO PRN (01:20)
[2021-01-01] MEDS: MEROPENEM 500 MG in SODIUM CHLORIDE 0.9% 100 ML IV SCH ×4 (05:57→23:07)
[2021-01-01 05:58] LABS: Basophils % 0.2 % (0.0-0.8); Eosinophils # 0.7 10*3/uL (0.0-0.87); Eosinophils % 7.2 % (0.00-10.9); Hematocrit 25.6 VOL% (42.0-52.0); Hemoglobin 7.9 GM/DL (14.0-18.0); Immature Granulocytes % 1.2 %; Immature Granulocytes Absolute 0.11 #; Lymphocytes # 2.4 10*3/uL (1.4-4.0); Lymphocytes % 25.3 % (21.2-54.2); Mean Corpuscular HGB Conc 30.9 GM/DL (32-36); Mean Corpuscular Volume 89.8 FL (87-102); Monocytes % 9.2 % (1.7-12.7); Neutrophils % 56.9 % (38.7-73.9); Platelet Count 397 T/CUMM (130-400); Red Blood Count 2.85 MC/CUMM (3.8-5.5); Red Cell Distribution Width 18.4 % (9.3-17.3); White Blood Count 9.4 T/CUMM (4-12)
[2021-01-01] MEDS: ALBUTEROL/IPRATROPIUM 3 ML NEB RESP TX SCH ×2 (07:24→20:28)
[2021-01-01] MEDS: METOPROLOL TARTRATE 50 MG TABLET PEG SCH ×2 (09:08→21:27)
[2021-01-01] MEDS: OMEPRAZOLE ODT 20 MG TABLET PEG SCH (09:09)
[2021-01-01] MEDS: BACLOFEN 10 MG TABLET PEG SCH ×3 (09:09→21:27)
[2021-01-01] MEDS: MENTHOL/ZINC OXIDE OINT 71 GM JAR TOP SCH ×2 (09:12→22:30)
[2021-01-01] MEDS: POLYVINYL ALCOHOL 1.4% OPH SOLN 15 ML BOTTLE BOTH EYES SCH ×4 (09:12→21:28)
[2021-01-01] MEDS: SODIUM HYPOCHLORITE 0.25% IRRIG 473 ML BOTTLE TOP SCH (09:12)
[2021-01-01] MEDS: levETIRAcetam LIQUID 100 MG/ML 30 ML/BOTTLE PEG SCH ×2 (09:18→22:12)
[2021-01-01] MEDS: FLUCONAZOLE 40 MG/ML 35 ML/BOTTLE PEG SCH (09:19)
[2021-01-01] MEDS: INSULIN REGULAR 100 UNIT/ML SUBCUT SCH ×4 (09:50→23:46)
[2021-01-01] MEDS ORDERED: SODIUM CHLORIDE 0.9% 1,000 ML IV PRN (10:04)
[2021-01-01] MEDS: SERTRALINE 25 MG TABLET PEG SCH (21:27)
[2021-01-01] MEDS: fentaNYL 50 MCG/HR PATCH TRANSDERM SCH (23:22)
[2021-01-02] MEDS: MEROPENEM 500 MG in SODIUM CHLORIDE 0.9% 100 ML IV SCH ×4 (04:12→21:55)
[2021-01-02 05:40] LABS: Basophils % 0.3 % (0.0-0.8); Eosinophils # 0.4 10*3/uL (0.0-0.87); Hematocrit 30.8 VOL% (42.0-52.0); Immature Granulocytes % 0.7 %; Immature Granulocytes Absolute 0.06 #; Lymphocytes # 1.8 10*3/uL (1.4-4.0); Mean Corpuscular HGB Conc 31.2 GM/DL (32-36); Mean Corpuscular Volume 88.5 FL (87-102); Mean Platelet Volume 9.5 FL (9.6-12.0); Monocytes % 7.8 % (1.7-12.7); Neutrophils % 67.2 % (38.7-73.9); Platelet Count 331 T/CUMM (130-400); Red Cell Distribution Width 17.2 % (9.3-17.3); White Blood Count 9.1 T/CUMM (4-12)
[2021-01-02 06:20] LABS: Hemoglobin 9.6 GM/DL (14.0-18.0); Red Blood Count 3.48 MC/CUMM (3.8-5.5)
[2021-01-02] MEDS: INSULIN REGULAR 100 UNIT/ML SUBCUT SCH ×3 (06:23→17:59)
[2021-01-02] MEDS: ALBUTEROL/IPRATROPIUM 3 ML NEB RESP TX SCH ×2 (07:40→20:33)
[2021-01-02] MEDS: MENTHOL/ZINC OXIDE OINT 71 GM JAR TOP SCH ×2 (08:39→22:09)
[2021-01-02] MEDS: POLYVINYL ALCOHOL 1.4% OPH SOLN 15 ML BOTTLE BOTH EYES SCH ×4 (08:39→22:10)
[2021-01-02] MEDS: OMEPRAZOLE ODT 20 MG TABLET PEG SCH (08:40)
[2021-01-02] MEDS: METOPROLOL TARTRATE 50 MG TABLET PEG SCH ×2 (08:40→21:55)
[2021-01-02] MEDS: BACLOFEN 10 MG TABLET PEG SCH ×3 (08:40→21:54)
[2021-01-02] MEDS: levETIRAcetam LIQUID 100 MG/ML 30 ML/BOTTLE PEG SCH ×2 (08:41→22:09)
[2021-01-02] MEDS: FLUCONAZOLE 40 MG/ML 35 ML/BOTTLE PEG SCH (08:41)
[2021-01-02] MEDS: SODIUM HYPOCHLORITE 0.25% IRRIG 473 ML BOTTLE TOP SCH (09:40)
[2021-01-02 11:32] LABS: Calcium 8.5 MG/DL (8.5-10.1); Potassium 3.4 MMOL/L (3.5-5.1)
[2021-01-02] MEDS ORDERED: TOBRAMYCIN INJ 320 MG in SODIUM CHLORIDE 0.9% 100 ML IV SCH (12:00)
[2021-01-02] MEDS: SERTRALINE 25 MG TABLET PEG SCH (21:54)
[2021-01-03] MEDS: INSULIN REGULAR 100 UNIT/ML SUBCUT SCH ×3 (00:32→11:51)
[2021-01-03] MEDS: MEROPENEM 500 MG in SODIUM CHLORIDE 0.9% 100 ML IV SCH ×3 (04:57→17:15)
[2021-01-03 06:51] LABS: Basophils % 0.4 % (0.0-0.8); Eosinophils # 0.5 10*3/uL (0.0-0.87); Eosinophils % 5.2 % (0.00-10.9); Hemoglobin 10.4 GM/DL (14.0-18.0); Immature Granulocytes % 0.4 %; Immature Granulocytes Absolute 0.04 #; Lymphocytes # 2.3 10*3/uL (1.4-4.0); Lymphocytes % 25.2 % (21.2-54.2); Mean Corpuscular HGB Conc 31.5 GM/DL (32-36); Mean Corpuscular Volume 88.7 FL (87-102); Mean Platelet Volume 9.9 FL (9.6-12.0); Monocytes % 12.3 % (1.7-12.7); Neutrophils % 56.5 % (38.7-73.9); Platelet Count 385 T/CUMM (130-400); Red Blood Count 3.72 MC/CUMM (3.8-5.5); Red Cell Distribution Width 17.4 % (9.3-17.3)
[2021-01-03 07:15] LABS: Calcium 8.7 MG/DL (8.5-10.1); Osmolality,Calculated 291.7 MOS/KG (273-304); Potassium 3.5 MMOL/L (3.5-5.1)
[2021-01-03] MEDS: ALBUTEROL/IPRATROPIUM 3 ML NEB RESP TX SCH (07:35)
[2021-01-03] MEDS: BACLOFEN 10 MG TABLET PEG SCH ×2 (10:02→14:20)
[2021-01-03] MEDS: METOPROLOL TARTRATE 50 MG TABLET PEG SCH (10:02)
[2021-01-03] MEDS: POLYETHYLENE GLYCOL POWDER 17 GM PACK PEG SCH (10:02)
[2021-01-03] MEDS: OMEPRAZOLE ODT 20 MG TABLET PEG SCH (10:02)
[2021-01-03] MEDS: levETIRAcetam LIQUID 100 MG/ML 30 ML/BOTTLE PEG SCH (10:03)
[2021-01-03] MEDS: FLUCONAZOLE 40 MG/ML 35 ML/BOTTLE PEG SCH (10:03)
[2021-01-03] MEDS: MENTHOL/ZINC OXIDE OINT 71 GM JAR TOP SCH (10:04)
[2021-01-03] MEDS: POLYVINYL ALCOHOL 1.4% OPH SOLN 15 ML BOTTLE BOTH EYES SCH ×3 (10:04→17:15)
[2021-01-03] MEDS: SODIUM HYPOCHLORITE 0.25% IRRIG 473 ML BOTTLE TOP SCH (10:05)
[2021-01-03 12:04] VITALS: BP 140/83
== END 2021-01-03 17:14 | DRG 166 ==
LOC: EDBD → EDUNIT# → N.ED 16:31 → N.EDINP 20:08 → N.5E 23:05
PROVIDERS: ADMIT Internal Medicine; ATTEND Internal Medicine